=== PATIENT | female | born 1930 | race Caucasian/White ===

== ENCOUNTER 2016-10-02 10:51 | Inpatient (IN) | payer OTHER ==
[~2016-10-02] VITALS: Ht 167.6 cm; Wt 76.5 kg
--- NOTE | ~2016-10-02 | CON ---
[place], [place] REPORT OF CONSULTATION NAME: [facility]VO [id number] UNIT #: [id number] ROOM: 522 DOCTOR: TREMAINE ORTEGA MD,ELSA BIRTHDATE: [birth year] DOS: 10/03/2016 PULMONARY CONSULTATION EVALUATION REASON FOR CONSULTATION: Assess the patient for acute respiratory failure. HISTORY OF PRESENT ILLNESS: This is an 86-year-old white female known to me with centrilobular emphysema with chronic hypercapnic hypoxic respiratory failure and steroid dependency, presented and admitted to the hospital under care of the hospitalist service on 10/02/2016. The patient was admitted to the hospital for the assessment and management of symptoms of confusional status with increased shortness of breath. The patient has been using oxygen supplementation as well. She has been noted with a decreased physical activity as well. The patient does have some symptoms of cough without any sputum expectoration. She has been noted increased respiratory symptoms recently, which has been treated by Zithromax for the past 4 days as she contacted my office. She was brought to the hospital. The patient's symptoms have not been getting worse. She denies any symptoms of chest pain or hemoptysis. The patient has been noted progressive changes in the mental status with decreased responsiveness. Arterial blood gases show severe acute hypercapnic and hypoxic respiratory failure. She was started on BiPAP for this patient in the Emergency Room later on admitted to the hospital and the BiPAP settings had been changed for this patient by me with gradual improvement and the improvement occurred in mental status as well as responsiveness. This morning, the patient still noticed some chest congestion, no sputum expectoration, and shortness breath was noted somewhat decreased using the BiPAP at this time. REVIEW OF SYSTEMS: CONSTITUTIONAL: Fatigue and tiredness noted without symptoms of fever or chills. EYES: Denied any burning, redness, or tenderness. EARS, NOSE, THROAT SYMPTOMS: No sore throat, hoarseness, otalgia, postnasal drainage. CARDIOVASCULAR: Denies anginal pain, edema or pain of the lower extremities. GASTROINTESTINAL: Denies any nausea, vomiting, diarrhea, abdominal pain, hematemesis, melena, or hematochezia. GENITOURINARY: Denies dysuria, suprapubic pain, and hematuria. MUSCULOSKELETAL: Denies acute joint pain, redness, or tenderness. SKIN: No lesions or rashes. CENTRAL NERVOUS SYSTEM: Generalized weakness noted without symptoms of focal neurologic deficit. Cranial nerves 2-12 intact. Remaining systems were reviewed with the patient and they were noted all negative. PAST MEDICAL HISTORY: Noted with last hospitalization in this hospital in 06/2016. She was managed at that time for dehydration and acute kidney injury for the patient and discharged home after progressive resolution. Past medical history was noted with; [place], [place] REPORT OF CONSULTATION NAME: IRINA CALVO UNIT #: [id number] ROOM: 522 DOCTOR: TREMAINE ORTEGA MD,ELSA BIRTHDATE: [birth year] 1. Severe centrilobular emphysema. 2. Chronic hypercapnic and hypoxic respiratory failure, use of oxygen 4 liter nasal cannula. 3. History of past intestinal blockage, which has been treated at [facility]. 4. Generalized anxiety disorder. 5. Chronic steroid dependency, 5 mg, up to 10 mg prednisone every day use. 6. History of osteoarthritis. PAST SURGICAL HISTORY: 1. Cholecystectomy. 2. Partial resection of small bowel that was noncancerous and then several other surgical interventions of the abdomen. The patient to correct the adhesions and others. 3. Hysterectomy. 4. Appendectomy. 5. Right hemicolectomy. SOCIAL HISTORY: The patient is . She lives at home. Denies history of alcohol or illicit drug use. Tobacco use noted since age of [age] years old, pack of cigarettes per day until 1999. She has worked for 15 years in the [employer] as well. FAMILY HISTORY: The patient noted father at age of 8989 years old from old age. Mother at age of 8787 years old from old age as well. MEDICATIONS: Current administered medication for the patient noted as use of multivitamin, calcium carbonate, Protonix, diltiazem, gabapentin, Cymbalta, metoprolol tartrate, Eliquis, Mucinex, tramadol, DuoNeb, Levaquin, Ativan, morphine and other p.r.n. medications. Also, had a history of atrial fibrillation, on anticoagulation with Eliquis. DRUG ALLERGIES: Allergy noted: 1. IVP DYE. 2. CODEINE. 3. MEPERIDINE. PHYSICAL EXAMINATION: GENERAL: An 86-year-old female who has been noted currently awake and alert, still noticed some confusion, but much better. Height of 5 feet 6 inches, weight 171 pounds. BMI 27.6. VITAL SIGNS: The patient shows normal temperature, respiratory rate of 20-25, heart rate of 58-107, blood pressure 130/70-108/75. Pulse oxygen saturation of the patient recorded on 4 L nasal cannula was 95% and later on 100% on 89%, currently with the use of the BiPAP desaturation noted 96% on 60% oxygen. HEENT: Head was atraumatic. Eyes nonicterus. NECK: Supple. CARDIOVASCULAR: S1, S2 is audible. LUNGS: The patient noted with moderate generalized reduced breath sound. Diffuse expiratory wheezing. ABDOMEN: Soft, nontender, bowel sounds present. [place], [place] REPORT OF CONSULTATION NAME: IRINA CALVO UNIT #: [id number] ROOM: 522 DOCTOR: ELSA MORAES MD BIRTHDATE: [birth year] EXTREMITIES: Showed no edema, clubbing, cyanosis. CENTRAL NERVOUS SYSTEM: The patient shows no gross focal deficit. MUSCULOSKELETAL: No deformities. SKIN: No lesions or rashes. LABORATORY DATA: Arterial blood gas of the patient, which was done yesterday on admission in the Emergency with pH of 7.20, pCO2 of 96, pO2 of 80. Later on, repeat arterial blood gas with setting of BiPAP 12/6, pH of 7.19, pCO2 112, pO2 77. Third arterial blood gas for the patient on the BiPAP 60% with adjusted settings of 18/10 with pH of 7.33, pCO2 of 77, pO2 of 53.4. Arterial blood gas of the patient that was done this morning, the patient shows pH is 7.37, pCO2 of 71, pO2 of 75.6 on 60% oxygen. BMP for this patient that was done for the patient yesterday on admission in the Emergency Room noted normal BUN and creatinine. Glucose noted as 160. CO2 was 39. Remaining LFTs were normal. CBC for the patient yesterday, WBC count 12.0, hemoglobin 11.9, hematocrit was normal, platelet count was normal as well. CK-MB, troponin of patient 3 sets yesterday and this morning normal. CBC this morning, hemoglobin 10.5, hematocrit 34.1, platelet count and WBC count was normal. BMP of this morning: BUN 22, creatinine 1.21. Carbon dioxide 41. Chloride of 90. The chest x-ray for the patient that was done, one view, in the Emergency Room, on assessment, the patient was noted with mild interstitial edema. The patient would be considered. Area of atelectasis, infiltration of the patient was noted, scattered in the lungs as well. IMPRESSION: 1. The patient who has been currently admitted to the hospital noted with acute on chronic hypercapnic hypoxic respiratory failure. Change in mental status with partial improvement. 2. Superimposed congestive heart failure would be considered with possibility of acute bacterial pneumonia bilaterally would also be considered in the differential diagnosis. 3. Acute kidney injury for the patient was also noted for this patient secondary to diuretic and current acute medical problems. 4. Metabolic alkalosis, hypercarbia, and diuretics for the patient would be considered. 5. The patient with chronic steroid dependency as well. 6. Generalized anxiety disorder. 7. Chronic anticoagulation. PLAN OF TREATMENT: Continue the BiPAP for this patient based on her code status: She does not wish to be intubated and will be kept on comfort measures, but would like to use the BiPAP that will be continued. Nutrition support. Aspiration precautions. Bronchodilators. Use of the corticosteroids as well. The antibiotic will be suffice at this time with continued use of the Levaquin. Management of hyperglycemia as well. Other supportive therapy, plan and management. Other medication to keep the patient comfortable will be continued. Thanks for allowing me to participate in the care of this patient. [place], [place] REPORT OF CONSULTATION NAME: [facility] [id number] UNIT #: [id number] ROOM: 522 DOCTOR: ELSA MORAES MD BIRTHDATE: [birth year] ELSA PENALOZA MD CM:CONSTR:REPORT OF CONSULTATION 1248 10/03/16 7808 interface
--- NOTE | ~2016-10-02 | PR ---
[place], [place] PROGRESS NOTE NAME: IRINA CALVO UNIT #: [id number] ROOM: 522 DOCTOR: TREMAINE ORTEGA MD,ELSA BIRTHDATE: [birth year] DOS: 10/06/2016 PULMONARY FOLLOWUP NOTE SUBJECTIVE: She has been noted to be comfortable at this time, was sleeping. She has used the BiPAP intermittently with oxygen supplementation. Mental status of the patient has been resolving progressively. OBJECTIVE: VITAL SIGNS: Show normal temperature, respirations 18, heart rate 73, blood pressure 132/56. Intake is 1100, the output was not recorded. Pulse oxygen saturation on 4 L nasal cannula 96% saturation. HEENT: Showed no new change. NECK: Supple. CARDIOVASCULAR: S1, S2 audible. LUNGS: Without any wheezing or crackles at the present time. ABDOMEN: Soft, nontender. LABORATORY DATA: Urine for Legionella antigen and for streptococcal antigens were noted negative. IMPRESSION: 1. The patient with resolving acute on chronic hypercapnic hypoxic respiratory failure with acute exacerbation of chronic obstructive pulmonary disease gradually. 2. Resolving metabolic alkalosis. PLAN OF TREATMENT: Bronchodilators to be continued. Continue use of the BiPAP. Dose of Solu-Medrol will be decreased to 40 mg Solu-Medrol daily at the present time as the wheezing and other respiratory symptoms have been resolving. Other supportive plan of management. Usual care. ELSA PENALOZA MD CM:PNTRANS [id number] ELSA ORTEGA MD 10/06/16 1540 interface
--- NOTE | ~2016-10-02 | PR ---
[place], [place] PROGRESS NOTE [id number] UNIT #: [id number] ROOM: 522 DOCTOR: TREMAINE ORTEGA MD,ELSA BIRTHDATE: [birth year] DOS: 10/05/2016 SUBJECTIVE: She has been noted much more awake and alert with improvement in confusion. This morning, seen using oxygen supplementation nasal cannula. Her oral intake has been noted appropriate per nursing staff. OBJECTIVE: VITAL SIGNS: Normal temperature, respiratory rate 18, heart rate of 118-74, blood pressure 124/78-137/53. Intake is 1300, the output 1050 mL. Pulse oxygen saturation on 4 L nasal cannula ____ saturation recorded. HEENT: Examination showed no new change. NECK: Supple. CARDIOVASCULAR: S1, S2 audible. LUNGS: Noted moderate reduction in breath sounds were noted in the lungs bilaterally. ABDOMEN: Soft, nontender. LABORATORY DATA: BMP: BUN 32, creatinine 1.22. Glucose 179. Carbon dioxide 37. CBC of the patient, hemoglobin 10.4, hematocrit 33.3, platelet count was normal and WBC count was normal. IMPRESSION: 1. The patient who has been currently treated in this hospital for the patient with progressive resolution of acute severe hypercapnic and hypoxic respiratory failure with acute bacterial bronchitis. The patient responding to treatment gradually. 2. Improving metabolic alkalosis. PLAN OF TREATMENT: Continue the current plan of management, antibiotics, bronchodilators, and use of the Diamox. The Solu-Medrol dose has been continued 40 mg b.i.d., which will remain the same as of today, possibly reduction to be done in the morning. Continue the BiPAP as ordered and tolerated. ELSA PENALOZA MD CM:PNTRANS [id number] [id number] ELSA ORTEGA MD 10/05/16 1434 interface
--- NOTE | ~2016-10-02 | PR ---
[place], [place] PROGRESS NOTE NAME: IRINA CALVO UNIT #: [id number] ROOM: 522 DOCTOR: ELSA MORASE MD BIRTHDATE: [birth year] DOS: 10/07/2016 PULMONARY PROGRESS NOTE SUBJECTIVE: The patient was seen and examined on 10/07/2016. She has been noted with increased sleepiness, has not been placed on the BiPAP from yesterday. She has been noted without any symptoms of hemodynamic instability. There were no symptoms of chest pain or any abdominal pain. OBJECTIVE: VITAL SIGNS: For the patient, which has been recorded showed the temperature of the patient noted as normal. The respiratory rate of the patient recorded as 18, heart rate of 67, blood pressure 120/48-130/56. Pulse oxygen saturation of the patient on 2 liters nasal cannula 93% saturation recorded. HEENT: Examination shows no acute change. NECK: Supple. CARDIOVASCULAR: S1, S2 audible. LUNGS: General reduction in breath sounds noted in the lungs bilaterally. ABDOMEN: Soft, nontender. LABORATORY DATA: BMP for this patient that was done this morning shows BUN 36, creatinine of 1.35. CBC this morning, WBC count 11.3, hemoglobin 37.1, platelet count was normal. Chest x-ray of the patient that was done this morning was noted with finding of pleural fluid and congestive heart failure. IMPRESSION: 1. The patient with acute severe hypercapnic hypoxic respiratory failure, chronic hypercapnic hypoxic respiratory failure. 2. Superimposed congestive heart failure with small pleural fluids as well as hypercapnia, change in mental status. PLAN OF TREATMENT: The BiPAP needs to be used for the patient majority of this time. Diuresis should be done for this patient. Bronchodilators administration as previously and other medical plan of management. Usual care, other supportive plan of management. Continue current dose of steroids, which should suffice. Continue anticoagulation for the patient for the long-term management of the patient's atrial fibrillation as well. [place], [place] PROGRESS NOTE NAME: IRINA CALVO UNIT #: [id number] ROOM: 522 DOCTOR: ELSA MORAES MD BIRTHDATE: [birth year] ELSA PENALOZA MD CM:PNTRANS 1238 22 ELSA ORTEGA MD 10/07/162322 interface
--- NOTE | ~2016-10-02 | PR ---
[place], [place] PROGRESS NOTE NAME: IRINA CALVO UNIT #: [id number] ROOM: 522 DOCTOR: ELSA MORAES MD BIRTHDATE: [birth year] DOS: 10/09/2016 PULMONARY PROGRESS NOTE SUBJECTIVE: She has been noted more awake and alert for this patient responding to treatment. Continue diuretic therapy. Denies symptoms of chest pain or any abdominal pain. Denies any coughing or sputum expectoration. OBJECTIVE: VITAL SIGNS: For the patient which has been recorded showed the temperature recorded as normal, respiratory rate 20, heart rate 60, blood pressure 110/60. Pulse oxygen saturation of the patient on 4 liters nasal cannula 99% saturation recorded. HEENT: Shows no new change. NECK: Supple. CARDIOVASCULAR: S1, S2 audible. LUNGS: The patient was noted without any wheezing or crackles at the present time. Breaths sounds are noted decreased in the lower portion of the lungs. However, improvement in air entry has been continued. ABDOMEN: Soft, nontender. LABORATORY DATA: CBC today, mild anemia, otherwise remaining CBC was normal. CMP of the patient this morning, the patient was noted with BUN 39, creatinine 1.35. CO2 of 39. IMPRESSION: 1. The patient with resolving acute congestive heart failure, improving acute kidney injury. The patient with azotemia. 2. Metabolic alkalosis, ____ diuretic and hypercarbia resolving as well. 3. Improving hypokalemia. PLAN OF TREATMENT: From the pulmonary standpoint, the patient would be considered for assessment for the discharge planning to [facility]. The patient was refusing to do so, but as I spoke to the patient this morning, she was agreeable for the plan. The discharge planning has been discussed with the patient's primary care attending. In the meantime, continue other previous treatment therapy, plan of management and care. Usual treatments. All other supportive plan and management. [place], [place] PROGRESS NOTE NAME: IRINA CALVO UNIT #: [id number] ROOM: 522 DOCTOR: ELSA MORAES MD BIRTHDATE: [birth year] ELSA PENALOZA MD CM:PNTRANS 1124 ELSA ORTEGA MD 10/10/16 0024 interface
--- NOTE | ~2016-10-02 | PR ---
[place], [place] PROGRESS NOTE NAME: IRINA CALVO UNIT #: [id number] ROOM: 522 DOCTOR: ELSA MORAES MD BIRTHDATE: [birth year] DOS: 10/02/2016 PULMONARY FOLLOWUP NOTE SUBJECTIVE: The patient has been noted clinically stable at this time with current medical management using the BiPAP. The patient ____ time. Remains awake, alert, and is responsive to vocal commands. She has not been noted any hemodynamic instability at the present time. OBJECTIVE: VITAL SIGNS: Showed normal temperature, respiratory rate 20, heart rate 71, blood pressure 112/58. Pulse oxygen saturation noted on the 50% BiPAP was 98% with the BiPAP of 94% saturation. HEENT: Examination shows head was atraumatic. Eyes: Nonicterus. NECK: Supple. CARDIOVASCULAR: S1, S2 audible. LUNGS: Noted general reduction of the breath sounds were noted in the lungs bilaterally. ABDOMEN: Soft, nontender. LABORATORY DATA: The BMP for this patient that was done this morning for the patient was noted as BUN 32, creatinine 1.16, glucose 143, carbon dioxide 41, chloride of 91. CBC of this morning; hemoglobin 9.7, hematocrit 30.7, platelet count was normal. IMPRESSION: 1. The patient with rohyp-re-avgqyru severe hypercapnic and hypoxic respiratory failure. 2. Metabolic alkalosis secondary to chronic hypercarbia. PLAN OF TREATMENT: Continuation of the BiPAP as the patient previously ordered. Please start the patient on Diamox ____ b.i.d. dosing for this patient to improve the metabolic alkalosis. Other supportive plan and management and other therapies. Usual care and other plan of treatment. Oxygen supplementation will be given for the patient intermittently at the time of the meals. Dose of Solu-Medrol will be decreased to 40 mg b.i.d. Continue current antibiotics. Overall prognosis, the patient was noted guarded at this time, but the patient seemed to be responding to the treatment this time gradually. [place], [place] PROGRESS NOTE NAME: IRINA CALVO UNIT #: [id number] ROOM: 522 DOCTOR: ELSA MORAES MD BIRTHDATE: [birth year] ELSA PENALOZA MD CM:PNTRANS [id number] ELSA ORTEGA MD 10/05/16 0113 interface
--- NOTE | ~2016-10-02 | PR ---
[place], [place] PROGRESS NOTE NAME: IRINA CALVO UNIT #: [id number] ROOM: 522 DOCTOR: ELSA MORAES MD BIRTHDATE: [birth year] DOS: 10/08/2016 PULMONARY PROGRESS NOTE SUBJECTIVE: She has been using the BiPAP as advised most of the time, noted completely awake and alert this morning with use of the BiPAP. She has been started on IV diuretics yesterday as well for this patient for the medical management of current fluid overload, congestive heart failure and pleural fluid formation. OBJECTIVE: VITAL SIGNS: For the patient, which has been recorded showed the temperature noted normal, respirations 18, heart rate of 60, blood pressure 100/48-115/88. Intake for this patient is 720 mL, the output was not documented, pulse oxygen saturation on 3-4 liters nasal cannula 92%-97% saturation. BiPAP was 98% saturation. HEENT: Showed no new change. NECK: Supple. CARDIOVASCULAR: S1, S2 audible. LUNGS: Noted generally reduced breath sounds, especially in the lower lungs. There were no crackles. ABDOMEN: Soft, nontender. LABORATORY DATA: CBC was noted with mild anemia, otherwise normal ____. CMP this morning, BUN 42, creatinine 1.34, glucose 108. Potassium was noted as 3.3. IMPRESSION: 1. Has been noted currently bilateral pleural fluid, acute congestive heart failure, acute on chronic hypercapnic hypoxic respiratory failure, responding to the treatment for this patient and improvement in mental status in the last 24 hours. 2. Hypokalemia for this patient was noted related to the diuretic therapy. PLAN OF TREATMENT: The patient has been given one dose of 40 mEq potassium for management of hypokalemia. Continue diuretic therapy in the patient, monitor chest x-ray of patient intermittently. Continue use of the BiPAP as advised and other medical therapy, plan of management. Usual care. Supportive care. Other therapy plan and management and usual treatments. [place], [place] PROGRESS NOTE NAME: IRINA CALVO UNIT #: [id number] ROOM: 522 DOCTOR: ELSA MORAES MD BIRTHDATE: [birth year] ELSA PENALOZA MD CM:PNTRANS [phone] 1 ELSA ORTEGA MD 10/09/16 0313 interface
[2016-10-02 10:51] VITALS: BP 184/90
[~2016-10-02 10:51] MED LIST: ACETAMINOPHEN-H1 TA2 PO; ADVAIR; AEROSOL THERAPY1 DEV INH; ALBUTEROL2.5 MG/0.5 INH; AMBIEN10 M1 PO; AMBIEN10 MG PO; AMINOPHYLLIN200 MG PO; ATIVAN0.5 MG PO; ATIVAN1 MG PO; AVPAK AZITHROM250 M1 PO; B-121000 MC1 PO; B121000 MCG/1 IM; B121000 MCG/2 IM; CALCIUM 600 +1 EAC7 PO; CALCIUM WITH VI1 TAB PO; CIPRO250 MG PO; CYMBALTA30 MG PO; DICYCLOMINE HCL10 MG PO; DICYCLOMINE10 MG PO; DILTIAZEM HCL30 MG PO; DOXYCYCLINE HY100 M5 PO; DUONEB 3 MG/3 ML3 M1 NEB; DUONEB 3ML 3 MG/3 ML INH; ELIQUIS5 M1 PO; GABAPENTIN100 M2 PO; GLIPIZIDE10 M2 PO; GLUCOTROL10 M1 PO; HCTZ/TRIAMTEREN1 CA2 PO; HCTZ/TRIAMTEREN1 TA3 PO; HUMALOG100 U/ML SC; ICAPS PLUS PO; LEVAQUIN750 M1 PO; LORAZEPAM0.5 MG PO; MERREM IV1 GM IV; METOPROLOL TART50 M1 PO; MUCINEX ER600 MG PO; MULTI-VITAMIN1 EACH PO; MULTIPLE VITAMI1 TAB PO; NEURONTIN100 MG PO; NEURONTIN300 MG PO; NORCO 5-325 TA1 EACH PO; OYSTER SHELL C500 M4 PO; PANTOPRAZOLE SO40 MG PO; PAROXETINE HCL10 MG PO; PREDNICOT10 MG PO; PREDNISONE10 M1 PO; PREDNISONE10 MG PO; PREDNISONE5 MG PO; PRESERVISION A1 EAC1 PO; PREVACID; PREVACID15 MG PO; PREVACID30 M1 PO; PRILOSEC20 M1 PO; PROAIR HFA8.5 GM INH; PROTONIX40 MG PO; RANITIDINE 7575 MG PO; SOLU-MEDROL40 MG IV; SPIRIVA -- 3018 MCG INH; SPIRIVA18 MCG IH; SPIRIVA18 MCG PO; SYMBICORT1 AE1 IH; SYMBICORT1 AE1 INH; TRAZADONE HYDR100 MG PO; TRAZODONE100 MG PO; ULTRACET 325 MG1 TA2 PO; VENTOLIN 02.5 MG/3 M NEB; VENTOLIN0.09 MG/AC IH; VENTOLIN0.09 MG/AC INH; VICODIN 5/500 505 MG PO; VITAMIN B12; VITAMIN B121000 MC1 PO; VITAMIN B1225 MCG PO; XIFAXAN550 MG PO; [UNRECOGNIZED DRUG - OTHER]
[2016-10-02 11:28] LABS: BASO % 0.1 % (0.0-1.0); EOS # 0.1 10*3/uL (0.0-0.4); EOS % 0.8 % (1.0-4.0); HEMATOCRIT 38.6 % (37.0-47.0); HEMOGLOBIN 11.9 g/dl (12.0-16.0); IG # 0.1 10*3/uL (0.0-0.1); LYMPH # 0.9 10*3/uL (1.3-4.4); LYMPH % 7.5 % (27.0-41.0); MEAN CELL VOLUME 93.2 fl (81.0-99.0); MEAN CORPUSCULAR HGB 28.7 pg (27.0-31.0); MEAN CORPUSCULAR HGB CONC 30.8 g/dl (33.0-37.0); MEAN PLATELET VOLUME 9.8 fl (9.6-12.3); MONO # 0.9 10*3/uL (0.1-1.0); MONO % 7.7 % (3.0-9.0); NEUT % 83.2 % (47.0-73.0); PLATELET COUNT AUTOMATED 162 10*3/uL (130-400); RED BLOOD COUNT 4.14 10*6/uL (4.10-5.10); RED CELL DISTRI WIDTH 12.1 % (0-14.5)
[2016-10-02 11:36] LABS: INTERNATIONAL NORM RATIO 1.1 (2.0-3.5); PROTHROMBIN TIME 11.2 SECONDS (9.0-12.4)
[2016-10-02 11:45] LABS: ALBUMIN 3.4 gm/dl (3.1-4.5); ALKALINE PHOSPHATASE 57 U/L (45-117); BILIRUBIN, TOTAL 0.7 mg/dl (0.2-1.0); BUN 15 mg/dl (7-24); CARBON DIOXIDE 39 mmol/L (21-32); CHLORIDE 92 mmol/L (98-107); EST GLOM FILT AFRICAN AMERICAN > 60 ml/min; GLUCOSE 160 mg/dL (65-99); MAGNESIUM 1.6 mg/dL (1.5-2.1); POTASSIUM 3.8 mmol/L (3.5-5.1); SGOT/AST 20 IU/L (3-35); SGPT/ALT 21 U/L (12-78); SODIUM 139 mmol/L (136-145); TOTAL PROTEIN 6.7 gm/dL (6.4-8.2)
[2016-10-02 11:49] LABS: TROPONIN I < 0.015 ng/ml (<0.045)
[2016-10-02 12:09] LABS: ABG BASE EXCESS 6.2 mmol/L (-2.0-2.0); ABG CO2 CONTENT 39.9 mmol/L (23-27); ABG HCO3 36.9 mmol/l (22-26); ABG TEMPERATURE 98.8 F (98.0-99.0); ARTERIAL BLOOD GAS PH 7.206 (7.35-7.45)
[2016-10-02 12:43] VITALS: BP 133/52
[2016-10-02 13:00] VITALS: BP 130/45
[2016-10-02 13:58] LABS: ABG BASE EXCESS 9.6 mmol/L (-2.0-2.0); ABG CO2 CONTENT 44.7 mmol/L (23-27); ABG HCO3 41.3 mmol/l (22-26); ABG TEMPERATURE 99.4 F (98.0-99.0)
[2016-10-02 14:02] LABS: ARTERIAL BLOOD GAS PH 7.194 (7.35-7.45)
[2016-10-02 14:19] VITALS: BP 151/66
[2016-10-02] MEDS ORDERED: TRAMADOL HCL50 MG PO ×2 (14:29→19:04)
[2016-10-02] MEDS ORDERED: GRALISE300 M1 PO (15:27)
[2016-10-02 16:00] VITALS: BP 123/50
[2016-10-02 16:05] LABS: BILIRUBIN NEGATIVE (NEGATIVE); BLOOD 1+ (NEGATIVE); CLARITY CLEAR (CLEAR); COLOR YELLOW (YELLOW); GLUCOSE NEGATIVE (NEGATIVE); KETONE NEGATIVE (NEGATIVE); LEUKO ESTERASE NEGATIVE (NEGATIVE); NITRITE NEGATIVE (NEGATIVE); PROTEIN NEGATIVE (NEGATIVE); UROBILINOGEN 0.2 E.U./dl (0.2-1.0)
[2016-10-02 16:24] LABS: BACTERIA 1+; URINE REFLEX COMMENT YES (NO); WBC 0-2 wbc/hpf (0-5)
[2016-10-02 17:53] LABS: CKMB 3.6 ng/ml (0.5-3.6); TROPONIN I 0.022 ng/ml (<0.045)
[2016-10-02] MEDS ORDERED: CYMBALTA30 MG PO (17:58)
[2016-10-02 18:03] LABS: ABG BASE EXCESS 11.4 mmol/L (-2.0-2.0); ABG CO2 CONTENT 42.5 mmol/L (23-27); ABG HCO3 40.1 mmol/l (22-26); ABG TEMPERATURE 97.8 F (98.0-99.0); ARTERIAL BLOOD GAS PH 7.333 (7.35-7.45); ARTERIAL BLOOD GAS PO2 53.4 mmHg (80-90)
[2016-10-02] MEDS ORDERED: DICYCLOMINE HYD10 MG PO (18:48)
[2016-10-02] MEDS ORDERED: PREDNISONE5 MG PO (19:02)
[2016-10-02 20:00] VITALS: BP 130/70
[2016-10-03] VITALS: BP 108/75
[2016-10-03 00:53] LABS: CKMB 3.5 ng/ml (0.5-3.6); TROPONIN I 0.021 ng/ml (<0.045)
[2016-10-03 05:55] LABS: CKMB 3.2 ng/ml (0.5-3.6); TROPONIN I 0.018 ng/ml (<0.045)
[2016-10-03 05:57] LABS: HEMATOCRIT 34.1 % (37.0-47.0); HEMOGLOBIN 10.5 g/dl (12.0-16.0); MEAN CELL VOLUME 91.9 fl (81.0-99.0); MEAN CORPUSCULAR HGB 28.3 pg (27.0-31.0); MEAN CORPUSCULAR HGB CONC 30.8 g/dl (33.0-37.0); MEAN PLATELET VOLUME 10.5 fl (9.6-12.3); PLATELET COUNT AUTOMATED 187 10*3/uL (130-400); RED BLOOD COUNT 3.71 10*6/uL (4.10-5.10); WHITE BLOOD COUNT 9.6 10*3/uL (4.8-10.8)
[2016-10-03 06:05] LABS: MAGNESIUM 1.8 mg/dL (1.5-2.1)
[2016-10-03 06:25] LABS: POTASSIUM 4.8 mmol/L (3.5-5.1)
[2016-10-03 06:38] LABS: LYMPHOCYTE # 0.2 10*3/uL (1.3-4.4); NEUTROPHIL # 9.4 10*3/uL (2.3-7.9); NEUTROPHILS 98 % (47-73); PLATELET SUFFICIENCY NORMAL (NORMAL); TOTAL CELLS COUNTED 100 #CELLS
[2016-10-03 06:48] LABS: ABG BASE EXCESS 13.8 mmol/L (-2.0-2.0); ABG CO2 CONTENT 43.3 mmol/L (23-27); ABG HCO3 41.2 mmol/l (22-26); ABG TEMPERATURE 98.7 F (98.0-99.0); ARTERIAL BLOOD GAS PH 7.379 (7.35-7.45); ARTERIAL BLOOD GAS PO2 75.6 mmHg (80-90)
[2016-10-03 07:42] LABS: HEMOGLOBIN A1c 5.3 % (4.8-5.6)
[2016-10-03 08:00] VITALS: BP 116/50
[2016-10-03 12:00] VITALS: BP 114/52
[2016-10-03 16:00] VITALS: BP 122/86
[2016-10-03 20:00] VITALS: BP 110/46
[2016-10-04] VITALS: BP 128/67
[2016-10-04 06:15] LABS: HEMATOCRIT 30.9 % (37.0-47.0); HEMOGLOBIN 9.7 g/dl (12.0-16.0); IG # 0.1 10*3/uL (0.0-0.1); LYMPH # 0.4 10*3/uL (1.3-4.4); LYMPH % 5.3 % (27.0-41.0); MEAN CELL VOLUME 90.4 fl (81.0-99.0); MEAN CORPUSCULAR HGB 28.4 pg (27.0-31.0); MEAN CORPUSCULAR HGB CONC 31.4 g/dl (33.0-37.0); MEAN PLATELET VOLUME 10.3 fl (9.6-12.3); MONO # 0.3 10*3/uL (0.1-1.0); NEUT # 7.4 10*3/uL (2.3-7.9); PLATELET COUNT AUTOMATED 176 10*3/uL (130-400); RED BLOOD COUNT 3.42 10*6/uL (4.10-5.10); RED CELL DISTRI WIDTH 12.1 % (0-14.5); WHITE BLOOD COUNT 8.2 10*3/uL (4.8-10.8)
[2016-10-04 06:39] LABS: ALBUMIN 2.9 gm/dl (3.1-4.5); BILIRUBIN, TOTAL 0.6 mg/dl (0.2-1.0); POTASSIUM 4.1 mmol/L (3.5-5.1); TOTAL PROTEIN 5.8 gm/dL (6.4-8.2)
[2016-10-04 08:00] VITALS: BP 124/61
[2016-10-04 12:00] VITALS: BP 102/58
[2016-10-04 16:00] VITALS: BP 125/56
[2016-10-04 20:00] VITALS: BP 101/53
[2016-10-05] VITALS: BP 123/57
[2016-10-05 05:41] VITALS: BP 137/53
[2016-10-05 06:26] LABS: HEMATOCRIT 33.3 % (37.0-47.0); HEMOGLOBIN 10.4 g/dl (12.0-16.0); MEAN CELL VOLUME 92.2 fl (81.0-99.0); MEAN CORPUSCULAR HGB 28.8 pg (27.0-31.0); MEAN CORPUSCULAR HGB CONC 31.2 g/dl (33.0-37.0); MEAN PLATELET VOLUME 10.4 fl (9.6-12.3); PLATELET COUNT AUTOMATED 209 10*3/uL (130-400); RED BLOOD COUNT 3.61 10*6/uL (4.10-5.10); RED CELL DISTRI WIDTH 12.1 % (0-14.5); WHITE BLOOD COUNT 6.6 10*3/uL (4.8-10.8)
[2016-10-05 06:36] LABS: POTASSIUM 3.7 mmol/L (3.5-5.1)
[2016-10-05 07:20] LABS: LYMPHOCYTE # 0.1 10*3/uL (1.3-4.4); MONOCYTE # 0.3 10*3/uL (0.1-1.0); NEUTROPHIL # 6.3 10*3/uL (2.3-7.9); NEUTROPHILS 95 % (47-73); PLATELET SUFFICIENCY NORMAL (NORMAL); TOTAL CELLS COUNTED 100 #CELLS
[2016-10-05 08:00] VITALS: BP 124/78
[2016-10-05 12:00] VITALS: BP 110/56
[2016-10-05 16:00] VITALS: BP 122/53
[2016-10-05 18:05] LABS: ORGANISM ID Not indicated. (.); SPECIMEN SOURCE Urine (.); STREPTOCOCCUS PNEUMONIAE AG Negative (Negative)
[2016-10-05 20:00] VITALS: BP 137/58
[2016-10-06] VITALS: BP 143/69
[2016-10-06 08:00] VITALS: BP 132/56
[2016-10-06 12:00] VITALS: BP 109/48
[2016-10-06 16:00] VITALS: BP 115/43
[2016-10-06 20:00] VITALS: BP 123/59
[2016-10-07] VITALS: BP 114/49
[2016-10-07 05:26] VITALS: BP 130/56
[2016-10-07 07:15] LABS: EOS % 0.6 % (1.0-4.0); HEMATOCRIT 37.1 % (37.0-47.0); HEMOGLOBIN 11.3 g/dl (12.0-16.0); LYMPH # 0.9 10*3/uL (1.3-4.4); LYMPH % 12.5 % (27.0-41.0); MEAN CORPUSCULAR HGB 28.3 pg (27.0-31.0); MEAN CORPUSCULAR HGB CONC 30.5 g/dl (33.0-37.0); MEAN PLATELET VOLUME 10.1 fl (9.6-12.3); MONO # 0.7 10*3/uL (0.1-1.0); MONO % 9.7 % (3.0-9.0); NEUT # 5.2 10*3/uL (2.3-7.9); NEUT % 76.6 % (47.0-73.0); PLATELET COUNT AUTOMATED 222 10*3/uL (130-400); RED BLOOD COUNT 3.99 10*6/uL (4.10-5.10); WHITE BLOOD COUNT 6.8 10*3/uL (4.8-10.8)
[2016-10-07 07:35] LABS: POTASSIUM 3.4 mmol/L (3.5-5.1)
[2016-10-07 08:00] VITALS: BP 120/48
[2016-10-07 12:00] VITALS: BP 119/54
[2016-10-07 16:00] VITALS: BP 115/56
[2016-10-07 20:00] VITALS: BP 110/60
[2016-10-08] VITALS: BP 115/88
[2016-10-08 06:02] LABS: EOS # 0.1 10*3/uL (0.0-0.4); EOS % 1.4 % (1.0-4.0); HEMATOCRIT 38.3 % (37.0-47.0); HEMOGLOBIN 11.5 g/dl (12.0-16.0); LYMPH # 1.2 10*3/uL (1.3-4.4); LYMPH % 16.4 % (27.0-41.0); MEAN CELL VOLUME 93.9 fl (81.0-99.0); MEAN CORPUSCULAR HGB 28.2 pg (27.0-31.0); MEAN PLATELET VOLUME 10.3 fl (9.6-12.3); MONO # 0.8 10*3/uL (0.1-1.0); MONO % 10.2 % (3.0-9.0); NEUT # 5.3 10*3/uL (2.3-7.9); NEUT % 71.5 % (47.0-73.0); PLATELET COUNT AUTOMATED 217 10*3/uL (130-400); RED BLOOD COUNT 4.08 10*6/uL (4.10-5.10); RED CELL DISTRI WIDTH 12.1 % (0-14.5); WHITE BLOOD COUNT 7.4 10*3/uL (4.8-10.8)
[2016-10-08 06:34] LABS: ALBUMIN 2.8 gm/dl (3.1-4.5); BILIRUBIN, TOTAL 0.3 mg/dl (0.2-1.0); POTASSIUM 3.3 mmol/L (3.5-5.1); TOTAL PROTEIN 5.8 gm/dL (6.4-8.2)
[2016-10-08 08:00] VITALS: BP 102/48
[2016-10-08 12:00] VITALS: BP 128/58
[2016-10-08 16:00] VITALS: BP 127/63
[2016-10-08 20:00] VITALS: BP 112/50
[2016-10-09] VITALS: BP 104/54
[2016-10-09 06:29] LABS: BASO % 0.1 % (0.0-1.0); EOS # 0.1 10*3/uL (0.0-0.4); EOS % 1.1 % (1.0-4.0); HEMATOCRIT 34.9 % (37.0-47.0); HEMOGLOBIN 10.7 g/dl (12.0-16.0); IG # 0.1 10*3/uL (0.0-0.1); LYMPH # 1.2 10*3/uL (1.3-4.4); LYMPH % 14.4 % (27.0-41.0); MEAN CELL VOLUME 92.3 fl (81.0-99.0); MEAN CORPUSCULAR HGB 28.3 pg (27.0-31.0); MEAN CORPUSCULAR HGB CONC 30.7 g/dl (33.0-37.0); MEAN PLATELET VOLUME 10.4 fl (9.6-12.3); MONO # 0.7 10*3/uL (0.1-1.0); MONO % 7.9 % (3.0-9.0); NEUT # 6.4 10*3/uL (2.3-7.9); NEUT % 75.6 % (47.0-73.0); PLATELET COUNT AUTOMATED 216 10*3/uL (130-400); RED BLOOD COUNT 3.78 10*6/uL (4.10-5.10); RED CELL DISTRI WIDTH 12.1 % (0-14.5); WHITE BLOOD COUNT 8.5 10*3/uL (4.8-10.8)
[2016-10-09 06:55] LABS: POTASSIUM 3.8 mmol/L (3.5-5.1)
[2016-10-09 07:27] LABS: ALBUMIN 2.7 gm/dl (3.1-4.5); BILIRUBIN, TOTAL 0.5 mg/dl (0.2-1.0)
[2016-10-09 07:30] LABS: TOTAL PROTEIN 5.4 gm/dL (6.4-8.2)
[2016-10-09 08:00] VITALS: BP 110/60
[2016-10-09 12:00] VITALS: BP 102/63
[2016-10-09] MEDS ORDERED: PREDNISONE10 MG PO (14:49)
== END 2016-10-09 17:00 | disposition other institution (70) | DRG 871 ==
LOC: ED 10:51 → 5E 12:36 → EDHOLD 12:36 → ICCU 12:56 → 5E 13:44
PROVIDERS: Emergency Medicine; Family Medicine Adult Medicine; Internal Medicine; Internal Medicine Critical Care Medicine
PROC: 5A09457 Assistance with Respiratory Ventilation, 24-96 Consecutive Hours, Continuous Positive Airway Pressure (ICD-10-PCS; principal; 2016-10-02)
DX: A41.9 Sepsis, unspecified organism (principal); J96.21 Acute and chronic respiratory failure with hypoxia; N17.0 Acute kidney failure with tubular necrosis; I50.33 Acute on chronic diastolic (congestive) heart failure; J18.9 Pneumonia, unspecified organism; E87.4 Mixed disorder of acid-base balance; J44.0 Chronic obstructive pulmonary disease with (acute) lower respiratory infection; I11.0 Hypertensive heart disease with heart failure; J96.22 Acute and chronic respiratory failure with hypercapnia; J44.1 Chronic obstructive pulmonary disease with (acute) exacerbation; R65.20 Severe sepsis without septic shock; I48.2 Chronic atrial fibrillation; K21.9 Gastro-esophageal reflux disease without esophagitis; Z66 Do not resuscitate; E87.6 Hypokalemia; F41.1 Generalized anxiety disorder; M19.90 Unspecified osteoarthritis, unspecified site; Z79.01 Long term (current) use of anticoagulants; Z79.899 Other long term (current) drug therapy; Z90.49 Acquired absence of other specified parts of digestive tract; Z99.81 Dependence on supplemental oxygen; Z98.42 Cataract extraction status, left eye; Z98.41 Cataract extraction status, right eye; Z90.710 Acquired absence of both cervix and uterus; Z87.891 Personal history of nicotine dependence; Z88.8 Allergy status to other drugs, medicaments and biological substances; Z91.041 Radiographic dye allergy status; Z80.8 Family history of malignant neoplasm of other organs or systems; Z83.2 Family history of diseases of the blood and blood-forming organs and certain disorders involving the immune mechanism

== ENCOUNTER 2016-10-24 09:55 | Inpatient (IN) | payer OTHER ==
[~2016-10-24] VITALS: Ht 162.5 cm; Wt 72.2 kg
--- NOTE | ~2016-10-24 | PN ---
[place], [place] PROGRESS NOTE [id number] UNIT #: [id number] ROOM: 510 DOCTOR: ELSA MORAES MD BIRTHDATE: [birth year] DATE: 10/28/16 SUBJECTIVE: She has been noted fully awake and alert. She has been using the BiPAP as recommended. She denies any symptoms of chest pain. She is eating her food regularly as well. OBJECTIVE: VITAL SIGNS: Shows normal temperature, respiratory rate 22, heart rate 64, and blood pressure 130/56. HEENT: Shows no acute change. NECK: Supple. CARDIOVASCULAR SYSTEM: S1, S2 audible. LUNGS: Noted with moderate generalized diminished breath sounds bilaterally. ABDOMEN: Soft, nontender. LABORATORY DATA: CBC this morning, mild anemia, otherwise CBC was normal. CMP this morning, the patient's BUN 32, creatinine 1.24 and glucose was normal. Carbon dioxide 40. IMPRESSION: 1. Resolving acute hypercapnic and hypoxic respiratory failure. 2. Acute kidney injury, the patient most likely intravascular volume depletion. 3. Metabolic alkalosis, resolving. 4. Acute exacerbation of chronic obstructive pulmonary disease as well. PLAN OF TREATMENT: Discussion was done with the patient and she was recommended about placement of long-term acute care facility if accepted to be done. In the meantime, continue the patient on current therapy, plan of management with use the BiPAP most time as tolerated and continue other care. Usual care. Supportive plan of management and treatments. ELSA MORAES MD CM:PNTRANS 1152 1152 ELSA ORTEGA MD 10/29/16 1726 JESÚS SNEED MIS.LLR
--- NOTE | ~2016-10-24 | PR ---
[place], [place] PROGRESS NOTE NAME: IRINA CALVO UNIT #: [id number] ROOM: 510 DOCTOR: ELSA MORAES MD BIRTHDATE: [birth year] DOS: 10/27/2016 PULMONARY PROGRESS NOTE SUBJECTIVE: She has been noted comfortable at this time, eating her breakfast. She has been noted more awake and alert with some confusion described as previously intermittently. She has been using the BiPAP until this morning. The patient eating her food, using oxygen supplementation with the nasal cannula. OBJECTIVE: VITAL SIGNS: Of the patient showed normal temperature. The respiratory rate 22, heart rate of 69, blood pressure 112/58. HEENT: Examination shows no new change. NECK: Supple. CARDIOVASCULAR SYSTEM: S1, S2 audible. LUNGS: Noted without any wheezing or crackles at the present time. ABDOMEN: Soft, nontender. LABORATORY DATA: Of the patient this morning, CBC this morning: WBC count was normal, platelet count was normal, hemoglobin 10.2, hematocrit 33.2. CMP of the patient was noted on 10/27/2016 shows glucose 158, BUN 21, creatinine 1.14, carbon dioxide 43. Albumin 3.0. IMPRESSION: 1. The patient who has been currently noted with ongoing acute on chronic hypercapnic hypoxic respiratory failure with exacerbation of chronic obstructive pulmonary disease. 2. Metabolic alkalosis of the patient was also noted. Metabolic alkalosis chronic hypercarbia. PLAN OF TREATMENT: Continue use of the BiPAP for this patient. The patient is already getting the Diamox with medical management of metabolic alkalosis. Steroids to be continued current dose. Continue with the previous treatment plan of management. BiPAP to be continued for the patient all the time except meals. Other supportive plan of management and care. No other change in treatment will be needed. [place], [place] PROGRESS NOTE NAME: IRINA CALVO UNIT #: [id number] ROOM: 510 DOCTOR: ELSA MORAES MD BIRTHDATE: [birth year] ELSA PENALOZA MD CM:PNTRANS [id number] [id number] ELSA ORTEGA MD 10/27/16 2319 interface
--- NOTE | ~2016-10-24 | PR ---
[place], [place] [facility]GRESS NOTE [id number] UNIT #: [id number] ROOM: 510 DOCTOR: TREMAINE ORTEGA MD,ELSA BIRTHDATE: [birth year] DOS: 10/26/2016 SUBJECTIVE: She has been noted awake and alert, noted with hematuria. The patient pulled down her Blanco catheter. The hematuria appeared to be mild at the present time. The patient has not been noted with symptoms of chest pain or any abdominal pain. OBJECTIVE: VITAL SIGNS: Showed normal temperature, respiratory rate of 20-19, heart rate 61, blood pressure 135/60. The pulse oxygen saturation recorded as 98% on 50% oxygen supplementation. HEENT: Examination shows no acute change. NECK: Supple. CARDIOVASCULAR: S1, S2 audible. LUNGS: Noted without any wheezing or crackles at the present time. Breaths are noted generally diminished bilaterally. ABDOMEN: Soft, nontender. IMPRESSION: 1. The patient with acute on chronic hypercapnic and hypoxic respiratory failure with acute tracheobronchitis with acute exacerbation of chronic obstructive pulmonary disease as well. 2. Chronic hypercarbia. 3. Change in mental status of the patient related to the current hypercarbia, which is improving progressively. PLAN OF TREATMENT: Continue the BiPAP, oxygen supplementation. Other treatment plan is in progress. Transfer the patient to telemetry floor from the intensive care unit. Continue the current application and use of the BiPAP for this patient continued nighttime ____ daytime. Other supportive plan of management, monitor mental status. The patient seemed to be much more awake, alert, oriented today. ELSA PENALOZA MD CM:PNTRANS [id number] ELSA ORTEGA MD 10/27/169 interface
--- NOTE | ~2016-10-24 | CON ---
[place], [place] REPORT OF CONSULTATION NAME: IRINA CALVO UNIT #: [id number] ROOM: [facility] DOCTOR: ELSA MORAES MD BIRTHDATE: [birth year] DOS: 10/25/2016 PULMONARY CONSULTATION EVALUATION AND MANAGEMENT REASON FOR CONSULTATION: Assess the patient for respiratory failure. HISTORY OF PRESENT ILLNESS: This is an 86-year-old female who has been known to me with history of end-stage centrilobular emphysema, chronic hypercapnic hypoxic respiratory failure. The patient is residing in the shelter facility. The patient has been recently diagnosed with obstructive sleep apnea disorder and titrated with the BiPAP. The BiPAP ordered for the patient has been already sent to the [facility] to arrange the BiPAP at home. She is residing in the nursing facility and has been ordered the BiPAP, which has been used at nighttime. She has been brought to the hospital Emergency Room for the patient yesterday as the patient developed decreased responsiveness. She was also noted confusional status. The symptoms of the patient of shortness of breath for the patient has been also noted. The patient denies any symptoms of chest pain or any abdominal pain. Reported at that time, there was no coughing or sputum expectoration described. Because of the unresponsiveness, she was sent to the Emergency Room. She has been seen in the Emergency Room, noted with recurrent acute on chronic hypercapnic and hypoxic respiratory failure. The patient has been hospitalized and currently treated in the Intensive Care Unit and has been using the BiPAP with a setting of 20/10. Mental status of the patient has been noted with gradual improvement for this patient from yesterday until this morning. She was still noted with mild confusional status, but it has been improving significantly. She denies any symptoms of chest pain or hemoptysis. The cough has been noted mild. REVIEW OF SYSTEMS: Limited because the patient is currently using the BiPAP for the patient with full face mask. CONSTITUTIONAL SYMPTOMS: The patient denies symptoms of fever or chills, complains of fatigue. EYES: Denies any burning, redness, or tenderness. EARS, NOSE, THROAT SYMPTOMS: No sore throat, hoarseness, otalgia, or postnasal drainage. CARDIOVASCULAR SYSTEM: Denies anginal pain, edema or pain of the lower extremities. GASTROINTESTINAL SYMPTOMS: Denies dysphagia, nausea, vomiting, diarrhea, abdominal pain, hematemesis, or melena. SKIN: No lesions or rashes. MUSCULOSKELETAL SYMPTOMS: No acute deformities. Remaining systems were reviewed with the patient, they were noted all negative. PAST MEDICAL HISTORY: The patient was known with, 1. History of recent hospitalization for acute on chronic hypercapnic and hypoxic respiratory failure, managed patient in the September 2016 and discharged to the nursing facility on October 06. 2. The patient with end-stage centrilobular emphysema. 3. 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 [place], [place] REPORT OF CONSULTATION NAME: IRINA CALVO UNIT #: [id number] ROOM: [facility] DOCTOR: TREMAINE ORTEGA MD,[facility] BIRTHDATE: [birth year] 4. Generalized anxiety disorder. 5. Obstructive sleep apnea disorder, titrated for the patient on the BiPAP, setting of 26/05 for the management of sleep apnea disorder. 6. History of osteoarthritis. 7. Past abdominal problem for the patient of diverticulosis and diverticulitis for this patient and intestinal blockage with significant workup for the patient managed surgically and otherwise in hospitalization in [facility] in [place], [place]. 8. History of atrial fibrillation, on anticoagulation. SURGICAL HISTORY: 1. Cholecystectomy. 2. Partial resection of small bowel noncancerous for the patient and some blockage which has been later on treated conservatively. 3. Hysterectomy. 4. Appendectomy. 5. Right hemicolectomy. 6. Fiberoptic bronchoscopy. SOCIAL HISTORY: The patient is , lives at home. There was no history of alcohol or illicit drug use. Tobacco use noted since age of [age] years old, pack of cigarettes per day for this patient until 1999. She has worked for 15 years in the [employer]. FAMILY HISTORY: Father at age of 8989 years old from old age. Mother at age 8787 years old from old age as well. MEDICATIONS: Current administered medications noted use of prednisone daily 10 mg, glipizide, omeprazole, Neurontin, Eliquis, Cymbalta, metoprolol tartrate, Cardizem, calcium carbonate, tramadol, lorazepam and other p.r.n. medications administration. PHYSICAL EXAMINATION: GENERAL: This is an 86-year-old white female who has been noted to be more awake this morning than previously reported on admission: The patient's height was recorded by the nursing staff as height of 5 feet 4 inches, weight of 163 pounds, BMI of 26. VITAL SIGNS: For the patient shows a normal temperature, respiratory rate of 7-25. The heart rate of patient 79-66, blood pressure of 101/59-131/49. Intake for the patient recorded as 400, the output 750 mL. Pulse oxygen saturation of the patient recorded on BiPAP was 100% saturation at this time. HEENT: Examination shows head was atraumatic. Eyes nonicterus. NECK: Supple. CARDIOVASCULAR SYSTEM: S1, S2 audible. LUNGS: The patient was noted with generally reduced breath sounds in the lungs were noted bilaterally. ABDOMEN: Soft, nontender. LABORATORY DATA: The CT scan of the head without contrast for the patient on admission on October 24 was essentially noted without any acute abnormalities. [place], [place] REPORT OF CONSULTATION NAME: IRINA CALVO UNIT #: [id number] ROOM: [facility] DOCTOR[facility] [birth year] Lactic acid on admission was 0.6 yesterday. Arterial blood gas yesterday for the patient in the Emergency Room, pH of 7.13, pCO2 of 136, pO2 of 64.2 for this patient on 3 liter nasal cannula oxygen supplementation. Arterial blood gas this morning BiPAP settings of 18/10, 50% oxygen, pH of 7.34, pCO2 of 90.9, pO2 of 74. CMP of the patient yesterday for the patient was noted as carbon dioxide 43, BUN of 89, creatinine . Albumin of 2.9. PT/PTT yesterday were noted as normal. BMP of the patient this morning shows carbon dioxide of 47, chloride of 90. Calcium and other electrolytes were normal. Chest x-ray of the patient that was done for this patient 1 view for the patient in the Emergency Room for the patient on 10/24/2016 for the patient was described finding of COPD without any acute pulmonary infiltration or other acute abnormalities. IMPRESSION: 1. The patient who has been currently admitted to the hospital noted with acute exacerbation of chronic obstructive pulmonary disease with unresponsiveness secondary to hypercarbia with current acute hypercapnic and hypoxic respiratory failure. 2. Acute exacerbation of chronic obstructive pulmonary disease, which has been noted recurrent as well. 3. Obstructive sleep apnea disorder, so far has not been started on the treatment in the home setting and I am not sure if the patient is receiving the BiPAP at the nursing facility at this time or not. The prescription has been sent during her recent office visit last week for this patient to the nursing facility. 4. Severe metabolic alkalosis secondary to chronic hypercarbia. PLAN OF TREATMENT: The patient will be started on IV Solu-Medrol 40 mg b.i.d. Prednisone will be continued same dose 10 mg daily. The BiPAP settings have been changed to settings of 18/14 to help improve the underlying hypoxemia as well. Repeat arterial blood gas in the morning. DVT prophylaxis for the patient in the form of the Eliquis. Nutritional support as tolerated. Start the patient or oral Diamox as well to help improve the very severe metabolic alkalosis. Monitor potassium level closely for this patient while the patient is on Diamox. Supportive plan of care and other medical management. Thanks for allowing me to participate in the case of this patient. ELSA PENALOZA MD CM:CONSTR:REPORT OF CONSULTATION 1238 10/26/16 0102 interface
[~2016-10-24 09:55] MED LIST changes: +DICYCLOMINE HYD10 MG PO; +GRALISE300 M1 PO; +TRAMADOL HCL50 MG PO
[2016-10-24] MEDS ORDERED: PREDNISONE10 MG PO (10:13)
[2016-10-24] MEDS ORDERED: HUMALOG100 U/ML SC (10:13)
[2016-10-24] MEDS ORDERED: OMEPRAZOLE20 M2 PO ×2 (10:14→14:43)
[2016-10-24] MEDS ORDERED: CYMBALTA30 MG PO (10:15)
[2016-10-24] MEDS ORDERED: LOPRESSOR50 M1 PO (10:15)
[2016-10-24] MEDS ORDERED: PRESERVISION A1 EAC1 PO (10:16)
[2016-10-24] MEDS ORDERED: Oscal,Oyster S500 MG PO (10:16)
[2016-10-24] MEDS ORDERED: GLUCOTROL10 MG PO (10:16)
[2016-10-24] MEDS ORDERED: NEURONTIN300 MG PO (10:17)
[2016-10-24] MEDS ORDERED: DILTIAZEM30 MG PO (10:17)
[2016-10-24] MEDS ORDERED: LORAZEPAM0.5 MG PO (10:17)
[2016-10-24] MEDS ORDERED: ELIQUIS5 M1 PO (10:17)
[2016-10-24] MEDS ORDERED: TRAMADOL HCL50 MG PO (10:18)
[2016-10-24] MEDS ORDERED: DICYCLOMINE HYD10 MG PO (10:18)
[2016-10-24 10:33] LABS: ABG BASE EXCESS 10.7 mmol/L (-2.0-2.0); ABG CO2 CONTENT 48.1 mmol/L (23-27); ABG HCO3 43.9 mmol/l (22-26); ABG TEMPERATURE 98.6 F (98.0-99.0); ARTERIAL BLOOD GAS PO2 64.2 mmHg (80-90)
[2016-10-24 10:38] LABS: ARTERIAL BLOOD GAS PH 7.137 (7.35-7.45)
[2016-10-24 11:18] LABS: BASO % 0.1 % (0.0-1.0); EOS # 0.1 10*3/uL (0.0-0.4); HEMATOCRIT 34.9 % (37.0-47.0); HEMOGLOBIN 10.5 g/dl (12.0-16.0); LYMPH # 1.4 10*3/uL (1.3-4.4); LYMPH % 15.6 % (27.0-41.0); MEAN CELL VOLUME 94.3 fl (81.0-99.0); MEAN CORPUSCULAR HGB 28.4 pg (27.0-31.0); MEAN CORPUSCULAR HGB CONC 30.1 g/dl (33.0-37.0); MEAN PLATELET VOLUME 9.9 fl (9.6-12.3); MONO # 0.7 10*3/uL (0.1-1.0); MONO % 8.3 % (3.0-9.0); NEUT # 6.5 10*3/uL (2.3-7.9); NEUT % 74.7 % (47.0-73.0); PLATELET COUNT AUTOMATED 138 10*3/uL (130-400); RED CELL DISTRI WIDTH 12.3 % (0-14.5); WHITE BLOOD COUNT 8.7 10*3/uL (4.8-10.8)
[2016-10-24 11:21] LABS: BILIRUBIN NEGATIVE (NEGATIVE); BLOOD 2+ (NEGATIVE); CLARITY CLEAR (CLEAR); COLOR YELLOW (YELLOW); GLUCOSE NEGATIVE (NEGATIVE); KETONE NEGATIVE (NEGATIVE); LEUKO ESTERASE NEGATIVE (NEGATIVE); NITRITE NEGATIVE (NEGATIVE); PH 5.5 (5.0-9.0); PROTEIN 1+ (NEGATIVE); SPECIFIC GRAVITY >= 1.030 (1.005-1.030)
[2016-10-24 11:26] LABS: PROTHROMBIN TIME 10.6 SECONDS (9.0-12.4)
[2016-10-24 11:35] LABS: ALBUMIN 2.9 gm/dl (3.1-4.5); ALKALINE PHOSPHATASE 51 U/L (45-117); BILIRUBIN, TOTAL 0.6 mg/dl (0.2-1.0); BUN 16 mg/dl (7-24); CHLORIDE 89 mmol/L (98-107); EST GLOM FILT AFRICAN AMERICAN > 60 ml/min; GLUCOSE 103 mg/dL (65-99); MAGNESIUM 1.7 mg/dL (1.5-2.1); POTASSIUM 3.6 mmol/L (3.5-5.1); SGOT/AST 19 IU/L (3-35); SGPT/ALT 19 U/L (12-78); SODIUM 137 mmol/L (136-145); TOTAL PROTEIN 5.8 gm/dL (6.4-8.2); TROPONIN I 0.028 ng/ml (<0.045)
[2016-10-24 11:39] VITALS: BP 108/41
[2016-10-24 11:43] LABS: CARBON DIOXIDE 43 mmol/L (21-32)
[2016-10-24 11:46] LABS: BACTERIA 1+; RBC 21-30 rbc/hpf (0-2); URINE REFLEX COMMENT YES (NO)
[2016-10-24 12:10] VITALS: BP 111/42
[2016-10-24] MEDS ORDERED: HCTZ/TRIAMTEREN1 TA3 PO (12:14)
[2016-10-24] MEDS ORDERED: PROTONIX40 MG PO (12:21)
[2016-10-24 12:30] VITALS: BP 125/47
[2016-10-24 16:00] VITALS: BP 126/49
[2016-10-24 16:29] LABS: ABG BASE EXCESS 9.4 mmol/L (-2.0-2.0); ABG CO2 CONTENT 45.5 mmol/L (23-27); ABG HCO3 41.8 mmol/l (22-26); ABG TEMPERATURE 97.9 F (98.0-99.0); ARTERIAL BLOOD GAS PO2 61.4 mmHg (80-90)
[2016-10-24 16:34] LABS: ARTERIAL BLOOD GAS PH 7.172 (7.35-7.45)
[2016-10-24 20:00] VITALS: BP 111/55
[2016-10-25] VITALS: BP 101/59
[2016-10-25 04:00] VITALS: BP 135/57
[2016-10-25 06:01] LABS: BASO % 0.2 % (0.0-1.0); HEMOGLOBIN 10.4 g/dl (12.0-16.0); LYMPH # 0.7 10*3/uL (1.3-4.4); MEAN CELL VOLUME 93.7 fl (81.0-99.0); MEAN CORPUSCULAR HGB 28.7 pg (27.0-31.0); MEAN CORPUSCULAR HGB CONC 30.6 g/dl (33.0-37.0); MEAN PLATELET VOLUME 10.2 fl (9.6-12.3); MONO # 0.4 10*3/uL (0.1-1.0); MONO % 8.9 % (3.0-9.0); NEUT # 3.6 10*3/uL (2.3-7.9); NEUT % 75.5 % (47.0-73.0); PLATELET COUNT AUTOMATED 138 10*3/uL (130-400); RED BLOOD COUNT 3.63 10*6/uL (4.10-5.10); RED CELL DISTRI WIDTH 11.9 % (0-14.5); WHITE BLOOD COUNT 4.7 10*3/uL (4.8-10.8)
[2016-10-25 06:36] LABS: BUN 22 mg/dl (7-24); CHLORIDE 90 mmol/L (98-107); EST GLOM FILT AFRICAN AMERICAN > 60 ml/min; GLUCOSE 121 mg/dL (65-99); MAGNESIUM 1.7 mg/dL (1.5-2.1); PHOSPHOROUS 3.7 mg/dL (2.5-4.9); POTASSIUM 4.1 mmol/L (3.5-5.1); SODIUM 138 mmol/L (136-145)
[2016-10-25 07:24] LABS: CARBON DIOXIDE 47 mmol/L (21-32)
[2016-10-25 08:00] VITALS: BP 132/57
[2016-10-25 08:07] LABS: ABG BASE EXCESS 18.5 mmol/L (-2.0-2.0); ABG CO2 CONTENT 50.4 mmol/L (23-27); ABG HCO3 47.7 mmol/l (22-26); ARTERIAL BLOOD GAS PH 7.341 (7.35-7.45); ARTERIAL BLOOD GAS PO2 74.3 mmHg (80-90)
[2016-10-25 12:00] VITALS: BP 131/49
[2016-10-25 15:29] VITALS: BP 115/40
[2016-10-25 20:00] VITALS: BP 141/53
[2016-10-26] VITALS: BP 130/50
[2016-10-26 04:00] VITALS: BP 136/76
[2016-10-26 05:59] LABS: ALBUMIN 3.2 gm/dl (3.1-4.5); BILIRUBIN, TOTAL 0.5 mg/dl (0.2-1.0); HEMATOCRIT 34.1 % (37.0-47.0); HEMOGLOBIN 10.4 g/dl (12.0-16.0); LYMPH # 0.5 10*3/uL (1.3-4.4); LYMPH % 8.8 % (27.0-41.0); MEAN CELL VOLUME 92.2 fl (81.0-99.0); MEAN CORPUSCULAR HGB 28.1 pg (27.0-31.0); MEAN CORPUSCULAR HGB CONC 30.5 g/dl (33.0-37.0); MEAN PLATELET VOLUME 10.9 fl (9.6-12.3); MONO # 0.2 10*3/uL (0.1-1.0); MONO % 3.4 % (3.0-9.0); NEUT # 4.7 10*3/uL (2.3-7.9); NEUT % 87.4 % (47.0-73.0); PLATELET COUNT AUTOMATED 154 10*3/uL (130-400); POTASSIUM 3.9 mmol/L (3.5-5.1); TOTAL PROTEIN 6.2 gm/dL (6.4-8.2); WHITE BLOOD COUNT 5.4 10*3/uL (4.8-10.8)
[2016-10-26 06:06] LABS: ABG BASE EXCESS 12.5 mmol/L (-2.0-2.0); ABG CO2 CONTENT 43.2 mmol/L (23-27); ABG HCO3 40.7 mmol/l (22-26); ARTERIAL BLOOD GAS PH 7.33 (7.35-7.45); ARTERIAL BLOOD GAS PO2 92.1 mmHg (80-90)
[2016-10-26 08:00] VITALS: BP 136/60
[2016-10-26 12:00] VITALS: BP 135/54
[2016-10-26 16:00] VITALS: BP 146/66
[2016-10-26 20:00] VITALS: BP 114/47
[2016-10-26 22:07] LABS: ABG BASE EXCESS 11.3 mmol/L (-2.0-2.0); ABG CO2 CONTENT 42.3 mmol/L (23-27); ABG HCO3 39.8 mmol/l (22-26); ARTERIAL BLOOD GAS PH 7.316 (7.35-7.45); ARTERIAL BLOOD GAS PO2 83.5 mmHg (80-90)
[2016-10-27] VITALS: BP 134/45
[2016-10-27 06:47] LABS: HEMATOCRIT 33.2 % (37.0-47.0); HEMOGLOBIN 10.2 g/dl (12.0-16.0); LYMPH # 0.5 10*3/uL (1.3-4.4); LYMPH % 8.5 % (27.0-41.0); MEAN CORPUSCULAR HGB 28.6 pg (27.0-31.0); MEAN CORPUSCULAR HGB CONC 30.7 g/dl (33.0-37.0); MEAN PLATELET VOLUME 10.1 fl (9.6-12.3); MONO # 0.4 10*3/uL (0.1-1.0); MONO % 6.4 % (3.0-9.0); NEUT # 4.6 10*3/uL (2.3-7.9); NEUT % 84.7 % (47.0-73.0); PLATELET COUNT AUTOMATED 145 10*3/uL (130-400); RED BLOOD COUNT 3.57 10*6/uL (4.10-5.10); RED CELL DISTRI WIDTH 12.1 % (0-14.5); WHITE BLOOD COUNT 5.4 10*3/uL (4.8-10.8)
[2016-10-27 07:30] LABS: BILIRUBIN, TOTAL 0.4 mg/dl (0.2-1.0); POTASSIUM 3.5 mmol/L (3.5-5.1)
[2016-10-27 07:32] LABS: TOTAL PROTEIN 5.9 gm/dL (6.4-8.2)
[2016-10-27 08:00] VITALS: BP 112/50
[2016-10-27 12:00] VITALS: BP 126/51
[2016-10-27 16:00] VITALS: BP 119/52
[2016-10-27 20:00] VITALS: BP 125/57
[2016-10-28] VITALS: BP 129/55
[2016-10-28 06:11] LABS: HEMOGLOBIN 10.2 g/dl (12.0-16.0); MEAN CELL VOLUME 91.7 fl (81.0-99.0); MEAN CORPUSCULAR HGB 28.3 pg (27.0-31.0); MEAN CORPUSCULAR HGB CONC 30.9 g/dl (33.0-37.0); MEAN PLATELET VOLUME 10.1 fl (9.6-12.3); PLATELET COUNT AUTOMATED 146 10*3/uL (130-400); RED CELL DISTRI WIDTH 12.3 % (0-14.5); WHITE BLOOD COUNT 6.8 10*3/uL (4.8-10.8)
[2016-10-28 06:32] LABS: ALBUMIN 2.9 gm/dl (3.1-4.5); BILIRUBIN, TOTAL 0.5 mg/dl (0.2-1.0); POTASSIUM 3.9 mmol/L (3.5-5.1)
[2016-10-28 07:00] LABS: LYMPHOCYTE # 0.5 10*3/uL (1.3-4.4); MONOCYTE # 0.2 10*3/uL (0.1-1.0); NEUTROPHIL # 6.1 10*3/uL (2.3-7.9); NEUTROPHILS 89 % (47-73); PLATELET SUFFICIENCY NORMAL (NORMAL); TOTAL CELLS COUNTED 100 #CELLS
[2016-10-28 08:00] VITALS: BP 130/56
[2016-10-28 12:00] VITALS: BP 110/56
[2016-10-28] MEDS ORDERED: PREDNISONE10 MG PO (15:44)
[2016-10-28] MEDS ORDERED: ACETAZOLAMIDE250 MG PO (15:44)
[2016-10-28 16:00] VITALS: BP 122/76
== END 2016-10-28 18:35 | DRG 189 ==
LOC: ED 09:55 → ICCU 11:31 → EDHOLD 11:31 → 5E 11:31 → ICCU 11:53 → 5E 10-26 14:08
PROVIDERS: Internal Medicine; Internal Medicine Critical Care Medicine; Nurse Practitioner Family; Student in an Organized Health Care Education/Training Program
PROC: 5A09457 Assistance with Respiratory Ventilation, 24-96 Consecutive Hours, Continuous Positive Airway Pressure (ICD-10-PCS; principal; 2016-10-24)
DX: J96.21 Acute and chronic respiratory failure with hypoxia (principal); E87.4 Mixed disorder of acid-base balance; N17.9 Acute kidney failure, unspecified; E44.0 Moderate protein-calorie malnutrition; I50.32 Chronic diastolic (congestive) heart failure; J44.1 Chronic obstructive pulmonary disease with (acute) exacerbation; I48.2 Chronic atrial fibrillation; I13.0 Hypertensive heart and chronic kidney disease with heart failure and stage 1 through stage 4 chronic kidney disease, or unspecified chronic kidney disease; E11.22 Type 2 diabetes mellitus with diabetic chronic kidney disease; Z99.81 Dependence on supplemental oxygen; N18.3 Chronic kidney disease, stage 3 (moderate); J96.22 Acute and chronic respiratory failure with hypercapnia; F41.1 Generalized anxiety disorder; G47.33 Obstructive sleep apnea (adult) (pediatric); D72.810 Lymphocytopenia; K21.9 Gastro-esophageal reflux disease without esophagitis; Z87.891 Personal history of nicotine dependence; Z68.28 Body mass index [BMI] 28.0-28.9, adult; Z98.42 Cataract extraction status, left eye; Z98.41 Cataract extraction status, right eye; Z90.49 Acquired absence of other specified parts of digestive tract; Z90.710 Acquired absence of both cervix and uterus; Z83.2 Family history of diseases of the blood and blood-forming organs and certain disorders involving the immune mechanism; Z88.5 Allergy status to narcotic agent; Z88.8 Allergy status to other drugs, medicaments and biological substances; Z91.041 Radiographic dye allergy status; Z79.4 Long term (current) use of insulin; Z79.899 Other long term (current) drug therapy; Z79.01 Long term (current) use of anticoagulants

== ENCOUNTER 2016-10-30 02:10 | Emergency (ER) | payer OTHER ==
[~2016-10-30] VITALS: Wt 73.0 kg
[~2016-10-30 02:10] MED LIST changes: +ACETAZOLAMIDE250 MG PO; +DILTIAZEM30 MG PO; +GLUCOTROL10 MG PO; +LOPRESSOR50 M1 PO; +OMEPRAZOLE20 M2 PO; +Oscal,Oyster S500 MG PO
[2016-10-30] MEDS ORDERED: GOLD BOND MEDI113 GM T (02:19)
[2016-10-30 02:34] LABS: EOS % 0.5 % (1.0-4.0); HEMATOCRIT 33.9 % (37.0-47.0); HEMOGLOBIN 10.6 g/dl (12.0-16.0); LYMPH # 1.1 10*3/uL (1.3-4.4); LYMPH % 18.3 % (27.0-41.0); MEAN CELL VOLUME 91.9 fl (81.0-99.0); MEAN CORPUSCULAR HGB 28.7 pg (27.0-31.0); MEAN CORPUSCULAR HGB CONC 31.3 g/dl (33.0-37.0); MEAN PLATELET VOLUME 9.6 fl (9.6-12.3); MONO # 0.4 10*3/uL (0.1-1.0); MONO % 7.2 % (3.0-9.0); NEUT # 4.3 10*3/uL (2.3-7.9); NEUT % 73.7 % (47.0-73.0); PLATELET COUNT AUTOMATED 147 10*3/uL (130-400); RED BLOOD COUNT 3.69 10*6/uL (4.10-5.10); RED CELL DISTRI WIDTH 12.5 % (0-14.5); WHITE BLOOD COUNT 5.9 10*3/uL (4.8-10.8)
[2016-10-30 02:51] LABS: BILIRUBIN, TOTAL 0.3 mg/dl (0.2-1.0); POTASSIUM 3.6 mmol/L (3.5-5.1); TOTAL PROTEIN 5.7 gm/dL (6.4-8.2); TROPONIN I 0.017 ng/ml (<0.045)
[2016-10-30 02:59] VITALS: BP 157/62
== END 2016-10-30 03:42 ==
LOC: ED 02:10
PROVIDERS: Emergency Medicine
DX: R06.00 Dyspnea, unspecified (principal); F41.9 Anxiety disorder, unspecified; K21.9 Gastro-esophageal reflux disease without esophagitis; I10 Essential (primary) hypertension; E11.65 Type 2 diabetes mellitus with hyperglycemia; I99.8 Other disorder of circulatory system; I48.2 Chronic atrial fibrillation; J44.9 Chronic obstructive pulmonary disease, unspecified; J96.10 Chronic respiratory failure, unspecified whether with hypoxia or hypercapnia; Z79.899 Other long term (current) drug therapy; Z91.041 Radiographic dye allergy status; Z88.6 Allergy status to analgesic agent

== ENCOUNTER 2016-11-09 10:03 | Inpatient (IN) | payer OTHER ==
[2016-11-09] VITALS (7 sets, daily range): BP systolic 98–123; BP diastolic 25–50
[~2016-11-09] VITALS: Ht 167.6 cm; Wt 83.5 kg
--- NOTE | ~2016-11-09 | CON ---
[place], [place] REPORT OF CONSULTATION NAME: IRINA CALVO UNIT #: [id number] ROOM: [place] [address] DOCTOR: TREMAINE ORTEGA MD,ELSA BIRTHDATE: [birth year] DOS: 11/10/2016 PULMONARY CONSULTATION AND EVALUATION AND MANAGEMENT REASON FOR CONSULTATION: Change in mental status with acute respiratory failure and pneumonia. HISTORY OF PRESENT ILLNESS: An 86-year-old white female known to me with past history of advanced centrilobular emphysema for the patient with obstructive sleep apnea disorder diagnosed with chronic hypoxic and hypercapnic respiratory failure, was residing in the nursing facility, [facility]. The patient was doing well for this patient until yesterday morning when the patient was noted with symptoms of increased lethargy with decreased responsiveness and symptoms of shortness of breath. She was sent to the hospital emergency room, the patient was assessed in the emergency room in the morning by the ER physician and noted with acute pneumonia for this patient with severe acute hypercapnic hypoxic respiratory failure on chronic hypercapnic hypoxic respiratory failure. She has been currently admitted to the intensive care unit for further medical management. The BiPAP for the patient was continued yesterday with the changes in the setting for the patient has been made for this patient based on the repeat arterial blood gases. This morning, the patient was seen, she has been using the BiPAP. The patient was noted much more awake, able to understand the questions. She has been noted with some symptoms of coughing for this patient without any sputum expectoration. There were no symptoms of chest pain. There were no symptoms of hemoptysis described. PAST MEDICAL HISTORY, SOCIAL HISTORY, SURGICAL HISTORY AND FAMILY HISTORY: Of the patient has been reviewed for this patient during today's assessment for this patient from consultation of 10/25/2016, and remains completely unchanged for the patient since that hospitalization. Please refer to that part of the consultation of the patient that was completed of this patient on 10/25/2016. The note has been present in the [facility] for this patient for review whenever is needed. CURRENT ADMINISTERED MEDICATIONS: Noted use of metoprolol tartrate for this patient, Cymbalta, gabapentin, Cardizem 30 mg q. 6 hours, Eliquis 5 mg b.i.d., omeprazole, glipizide, tramadol, Lovenox, Levaquin, vancomycin and IV Zosyn. DRUG ALLERGY HISTORY: The patient was noted as allergy: 1. IVP DYE. 2. CODEINE. 3. MEPERIDINE. REVIEW OF SYSTEMS: Very limited because of the current use of the BiPAP for the medical management of severe acute hypercapnic and hypoxic respiratory failure on chronic hypercapnic and hypoxic respiratory failure. CONSTITUTIONAL: The patient was noted with symptoms of fatigue and tiredness. Denies symptoms of fever or chills. EYES: Denies any burning, redness, or tenderness. EAR, NOSE, THROAT: Denies sore throat, hoarseness, otalgia, postnasal drainage. [place], [place] REPORT OF CONSULTATION NAME: IRINA CLAVO UNIT #: [id number] ROOM: [place] [address] DOCTOR: TREMAINE ORTEGA MD,[facility] BIRTHDATE: [birth year] CARDIOVASCULAR: Denies anginal pain noted with edema of the lower extremities. GASTROINTESTINAL: Denies dysphagia, nausea, vomiting, diarrhea, abdominal pain, hematemesis, melena, hematochezia. SKIN: The patient was noted with bruising of the skin for the patient, which has been noted on admission secondary to use of her home medications. GENITOURINARY: Denies dysuria, suprapubic pain, hematuria. MUSCULOSKELETAL: Denies acute joint pain, redness, or tenderness. CENTRAL NERVOUS SYSTEM: Denies dizziness, headache, diplopia or syncopal episodes. Remaining systems were reviewed with the patient, they were noted all negative. PHYSICAL EXAMINATION: GENERAL: This is an 86-year-old female who has been currently noted to be awake, currently uses the BiPAP without any distress. VITAL SIGNS: Height of 5 feet 6 inches, weight of 184 pounds, BMI 29.7 with the vital signs recorded as temperature 99 degree Fahrenheit to normal temperature, respiratory rate of the patient ranged between 24-16, heart rate of 65-72, blood pressure 130/56 of the patient to 105/34. Heart rate of the patient noted later on elevated as 130 with atrial fibrillation with rapid ventricular response. HEENT: Edentulous status. NECK: Supple. Head was atraumatic. Eyes nonicterus. Oral mucosa dry. CARDIOVASCULAR: S1, S2 is audible. LUNGS: Noted with generalized reduction of breath sounds, scattered crackles of the lungs on the left side with scattered expiratory wheezing. ABDOMEN: Soft, nontender. Bowel sounds present. EXTREMITIES: Shows mild edema of the lower extremities with above the skin for the patient shows area of bruising of the upper and the lower extremities, most likely secondary to use of medications, anticoagulants. CENTRAL NERVOUS SYSTEM: Cranial nerves apparently appeared to be intact with limited examination, but there was definitely no gross focal neurologic deficit. MUSCULOSKELETAL: No acute deformities. LABORATORY DATA: The patient's CBC on 11/09/2016, for the patient, WBC count was elevated at 18.9, hemoglobin 11.3, hematocrit 38.5, platelet count 260,000. PT/PTT was noted as normal yesterday as well. CMP of the patient yesterday on admission, BUN 28, creatinine 1.39, glucose of 156, carbon dioxide 34. Lactic acid done yesterday was noted at 0.6. Arterial blood gas of the patient, pH of 7.07, pCO2 114, pO2 was noted as 150 for this patient initially on nonrebreather mask. PH of 7.08, pCO2 of 103, pO2 of 37, it is a venous blood gas. Repeat arterial blood gas for the patient on 50% oxygen, pH of 7.11, pCO2 90, pO2 of 71.8. Another arterial blood gas was done for the patient after adjustment of the BiPAP, pH of 7.18, pCO2 of 76, pCO2 of 72.7 for this patient with the use of BiPAP settings of 18/10. CK-MB, troponin were noted as normal. ABG this morning, pH of 7.20, pCO2 of 72.4, pO2 of 116 on 50% oxygen. CMP this morning, BUN 33, creatinine 1.22, glucose 155, sodium 146, remaining electrolytes grossly normal. PT/PTT this morning was normal. CBC this morning, hemoglobin 9.9, hematocrit 33.5, WBC count normal, platelet count was normal with 95% segmented neutrophils. Chest x-ray, the patient was noted with evidence of acute infiltration noted in the left lung. [place], [place] REPORT OF CONSULTATION NAME: IRINA CALVO UNIT #: [id number] ROOM: [place] [address] DOCTOR: ZORAN MORAES MDM BIRTHDATE: [birth year] IMPRESSION: 1. Acute on chronic severe hypercapnic and hypoxic respiratory failure result of acute pneumonia, consideration of gram-positive and gram-negative organisms may be related to the aspiration considered. 2. Acute exacerbation of COPD, which has been noted earlier with scattered wheezing in the lungs bilaterally. 3. History of known obstructive sleep apnea disorder, which has been titrated with the BiPAP, pending the BiPAP to be started in the home settings because of current hospitalization and previous treatment in the long term facility. 4. Chronic metabolic alkalosis of the patient secondary to chronic hypercarbia noted well controlled. 5. Atrial fibrillation, currently noted with acute rapid ventricular response, which has been managed with medications including beta blockers and other medication adjustments as well. 6. Mild edema of the upper and the lower extremities of the patient as well. PLAN OF TREATMENT: Continuation of bronchodilators, oxygen supplementation and current antibiotic. Monitor culture results of the sputum if the patient expectorate that. Monitor chest x-ray of the patient with repeat chest x-ray in the morning. Continue the BiPAP most of the time except possibly use of oxygen only for the meals. Further treatment plan of management for the patient to be changed based on progression of the illness. Continue DVT prophylaxis in the form of Eliquis as well. Maximize the cardiac management as well. Supportive care. Usual medical management, other therapy, plan of care. Thanks for allowing me to participate in the care of this patient. ELSA PENALOZA MD CM:CONSTR:REPORT OF CONSULTATION 1241 11/12/16 1151 interface
--- NOTE | ~2016-11-09 | PR ---
[place], [place] PROGRESS NOTE NAME: IRINA CALVO UNIT #: [id number] ROOM: [place] [address] DOCTOR: PRADEEP DAVEY BIRTHDATE: [birth year] DOS: 11/10/2016 SUBJECTIVE: The patient is an 86-year-old female who is being followed for healthcare-associated pneumonia of the left lung. She remains on Zosyn, vancomycin, and Levaquin. Her sputum specimen was rejected, although it had been induced by Respiratory. Her blood cultures are sterile. Urine culture with greater than 100,000 colonies of gram-negative bacilli. She is doing much better today. She remains on BiPAP currently, but she is much more alert, responsive, up in the chair. Denies nausea, vomiting, or diarrhea. She is confused. She has been afebrile. No rash or itch. No pain. LABORATORY DATA: Showed WBC is 9.6, platelets 219. BUN 33, creatinine 1.22. LFTs within normal limits. Urinary antigens are pending. PHYSICAL EXAMINATION: VITAL SIGNS: Temperature 97.0, pulse 115, respirations 21, BP 98/48. GENERAL: An 86-year-old female in no acute distress. HEAD, EYES, EARS, NOSE, AND THROAT: Normocephalic. No thrush. LUNGS: With rales on the left. Respirations even and unlabored on the BiPAP. HEART: Regular rhythm. No murmur appreciated. ABDOMEN: Soft, nontender. EXTREMITIES: +1 edema of all 4 extremities. SKIN: Warm, dry, free of rashes. ASSESSMENT: Healthcare-associated pneumonia, left lung. PLAN: She is to continue the empiric antibiotics with vancomycin, Zosyn, and Levaquin. Pending sputum culture and urinary antigens. I did discuss with nursing to reattempt sputum culture. Case discussed with Dr. Adrianna Bermudez. OCTOBER TAMICA FERNÁNDEZ [place], [place] PROGRESS NOTE NAME: IRINA CALVO UNIT #: [id number] ROOM: [place] [address] DOCTOR: PRADEEP DAVEY,OCTOBER BIRTHDATE: [birth year] ADRIANNA BERMUDEZ MD CM:JESSICA [id number] OCTOBER PRADEEP DAVEY 11/11/16 1047 interface
--- NOTE | ~2016-11-09 | PR ---
[place], [place] PROGRESS NOTE NAME: IRINA CALVO UNIT #: [id number] ROOM: [place] [address] DOCTOR: ELSA MORAES MD BIRTHDATE: [birth year] DOS: 11/12/2016 PULMONARY PROGRESS SUBJECTIVE: The patient has been noted with intermittent wakefulness for the patient and drowsiness at the time. She remains comfortable otherwise. She has been continued on the BiPAP use at this time. She has been noted with sinus pauses for the patient with intermittent atrial fibrillation, rapid ventricular response and bradycardia at times as well. OBJECTIVE: VITAL SIGNS: For the patient, which have been recorded showed the blood pressure of the patient recorded as 133/46-141/54, heart rate ranging between 60-143, respiratory rate was 16-22. The temperature was normal. HEENT: Examination shows no new changes at the present time. CARDIOVASCULAR SYSTEM: S1, S2 audible. LUNGS: Generally reduced breath sounds bilaterally without any wheezing or crackles. ABDOMEN: Soft, nontender. LABORATORY DATA: Streptococcal antigen and the legionella antigen in the urine report noted as negative. IMPRESSION: 1. Acute pneumonia of the patient, multifocal patient possibly to aspiration, currently treated for gram-positive, gram-negative infection. 2. Changes in mental status secondary to multiple issues including hypercarbia infection and others. 3. Acute on chronic hypercapnic and hypoxic respiratory failure. 4. Advanced chronic obstructive pulmonary disease for this patient as well. PLAN OF TREATMENT: Continue the BiPAP for this patient intermittently with other comfort measures. Continue antibiotics, bronchodilators. The patient could be transferred from the intensive care unit to a regular telemetry floor since there will be no intervention necessary for the patient during the stay in the Intensive Care Unit based on her code status. [place], [place] PROGRESS NOTE NAME: IRINA CALVO UNIT #: [id number] ROOM: [place] [address] DOCTOR: ELSA MORAES MD BIRTHDATE: [birth year] ELSA PENALOZA MD CM:PNTRANS [id number] ELSA ORTEGA MD 11/13/16 0117 interface
--- NOTE | ~2016-11-09 | PR ---
[place], [place] PROGRESS NOTE NAME: [id number] UNIT #: [id number] ROOM: [place] [address] DOCTOR: TREMAINE ORTEGA MD,ELSA BIRTHDATE: [birth year] DOS: 11/11/2016 PULMONARY FOLLOWUP SUBJECTIVE: The patient was seen and examined on 12/08/2016. She has been noted with ____ changes in mental status with intermittent improvement in mental status. This morning, the patient has been using the BiPAP for this patient. The code status has been noted DNR-CC arrest, use of the BiPAP with no intubation, no CPR. The patient has determined finally code status by the family members. OBJECTIVE: VITAL SIGNS: For the patient shows a normal temperature, respiratory rate 20-24, heart rate 70-135 with atrial fibrillation intermittently with rapid ventricular response, blood pressure 109/62-101/35. Intake 1730 mL, output 350 mL. The pulse oxygen saturation with the BiPAP was 90%-92% saturation. HEENT: Examination shows no new change. NECK: Supple. CARDIOVASCULAR: S1, S2 is audible. LUNGS: Noted with moderate decreased breath sounds in the lungs with scattered crackles in the lungs bilaterally, more on the left than the right side. ABDOMEN: Soft, nontender. LABORATORY DATA: BMP of the patient this morning, BUN 24, creatinine 1.14. Glucose 127, carbon dioxide 33. Vancomycin trough level 10.2. Chest x-ray, PA and lateral view this morning shows persistent infiltration, consolidation in the left lung for this patient. Small left pleural fluid was also seen. Arterial blood gas that was done this morning for this patient shows pH of 7.25, pCO2 of 72, pO2 65. IMPRESSION: 1. The patient with persistent acute hypercapnic and hypoxic respiratory failure, chronic hypoxic and hypercapnic respiratory failure, change in mental status. 2. Acute large pneumonia involving the left lung with small pleural fluid as a result. 3. Intermittent changes in mental status was also seen. PLAN OF MANAGEMENT: The patient's BiPAP setting has been changed, BiPAP for . Oxygen supplementation titrated to maintain saturation 92% or greater. The oxygen supplementation increased from 50% - 60% of oxygen. Other supportive therapy, plan of management was continued as previously. Usual treatment. Overall, prognosis of the patient remains guarded. [place], [place] PROGRESS NOTE NAME: IRINA CALVO UNIT #: [id number] ROOM: [place] [address] DOCTOR: TREMAINE ORTEGA MD,ELSA BIRTHDATE: [birth year] ELSA PENALOZA MD CM:PNTRANS [phone] ELSA ORTEGA MD 11/12/16 0304 interface
--- NOTE | ~2016-11-09 | CON ---
[place], [place] REPORT OF CONSULTATION NAME: IRINA CALVO UNIT #: [id number] ROOM: [place] [address] DOCTOR: LARA WILLIAMSON,ADRIANNA Plasencia BIRTHDATE: [birth year] DOS: 11/09/2016 ADDENDUM I agree with the above plans after reviewing the chart, its labs and radiographs and agree with plan as outlined above. Follow up the patient clinically and make appropriate changes accordingly. ADRIANNA BERMUDEZ MD CM:CONSTR:REPORT OF CONSULTATION 1901 11/10/16 1105 interface
[~2016-11-09 10:03] MED LIST changes: +GOLD BOND MEDI113 GM T
[2016-11-09 10:33] LABS: BASO % 0.1 % (0.0-1.0); EOS % 0.2 % (1.0-4.0); HEMATOCRIT 38.5 % (37.0-47.0); HEMOGLOBIN 11.3 g/dl (12.0-16.0); IG # 0.3 10*3/uL (0.0-0.1); LYMPH # 0.8 10*3/uL (1.3-4.4); LYMPH % 4.2 % (27.0-41.0); MEAN CELL VOLUME 96.5 fl (81.0-99.0); MEAN CORPUSCULAR HGB 28.3 pg (27.0-31.0); MEAN CORPUSCULAR HGB CONC 29.4 g/dl (33.0-37.0); MEAN PLATELET VOLUME 10.2 fl (9.6-12.3); MONO # 0.9 10*3/uL (0.1-1.0); MONO % 4.9 % (3.0-9.0); NEUT # 16.3 10*3/uL (2.3-7.9); NEUT % 89.2 % (47.0-73.0); NUCLEATED RED BLOOD CELL 0.1 % (0.0-0.0); PLATELET COUNT AUTOMATED 260 10*3/uL (130-400); RED BLOOD COUNT 3.99 10*6/uL (4.10-5.10); WHITE BLOOD COUNT 18.3 10*3/uL (4.8-10.8)
[2016-11-09 10:46] LABS: PROTHROMBIN TIME 10.4 SECONDS (8.9-12.2)
[2016-11-09 10:49] LABS: ALBUMIN 2.8 gm/dl (3.1-4.5); BILIRUBIN, TOTAL 0.5 mg/dl (0.2-1.0); C-REACTIVE PROTEIN 3.28 MG/DL (0-0.3); CKMB 2.6 ng/ml (0.5-3.6); MAGNESIUM 1.9 mg/dL (1.5-2.1); POTASSIUM 3.8 mmol/L (3.5-5.1); TROPONIN I 0.022 ng/ml (<0.045)
[2016-11-09 10:49] LABS: BILIRUBIN NEGATIVE (NEGATIVE); BLOOD 3+ (NEGATIVE); CLARITY CLOUDY (CLEAR); COLOR YELLOW (YELLOW); GLUCOSE NEGATIVE (NEGATIVE); KETONE NEGATIVE (NEGATIVE); NITRITE POSITIVE (NEGATIVE); PH 5.5 (5.0-9.0); PROTEIN 1+ (NEGATIVE)
[2016-11-09 10:59] LABS: LEUKO ESTERASE 1+ (NEGATIVE)
[2016-11-09 11:00] LABS: BACTERIA 4+; URINE REFLEX COMMENT YES (NO)
[2016-11-09 11:12] LABS: RBC 41-50 rbc/hpf (0-2); WBC 21-30 wbc/hpf (0-5)
[2016-11-09 11:13] LABS: ABG BASE EXCESS -1.5 mmol/L (-2.0-2.0); ABG CO2 CONTENT 34.8 mmol/L (23-27); ABG HCO3 31.4 mmol/l (22-26); ABG TEMPERATURE 99.1 F (98.0-99.0)
[2016-11-09 11:19] LABS: ARTERIAL BLOOD GAS PH 7.072 (7.35-7.45)
[2016-11-09 13:22] LABS: ABG BASE EXCESS -2.5 mmol/L (-2.0-2.0); ABG HCO3 29.7 mmol/l (22-26); ABG TEMPERATURE 97.6 F (98.0-99.0)
[2016-11-09 13:28] LABS: ARTERIAL BLOOD GAS PH 7.083 (7.35-7.45)
[2016-11-09 13:29] LABS: ARTERIAL BLOOD GAS PO2 37.6 mmHg (80-90)
[2016-11-09 13:41] LABS: ABG BASE EXCESS -2.3 mmol/L (-2.0-2.0); ABG HCO3 29.1 mmol/l (22-26); ABG TEMPERATURE 97.6 F (98.0-99.0); ARTERIAL BLOOD GAS PO2 71.8 mmHg (80-90)
[2016-11-09 13:45] LABS: ARTERIAL BLOOD GAS PH 7.116 (7.35-7.45)
[2016-11-09 19:08] LABS: ABG BASE EXCESS -1.7 mmol/L (-2.0-2.0); ABG CO2 CONTENT 30.3 mmol/L (23-27); ABG HCO3 27.8 mmol/l (22-26); ABG TEMPERATURE 97.2 F (98.0-99.0); ARTERIAL BLOOD GAS PO2 72.7 mmHg (80-90)
[2016-11-09 19:12] LABS: ARTERIAL BLOOD GAS PH 7.183 (7.35-7.45)
[2016-11-09 19:20] LABS: TROPONIN I 0.017 ng/ml (<0.045)
[2016-11-10] VITALS: BP 113/45
[2016-11-10 00:28] LABS: TROPONIN I 0.019 ng/ml (<0.045)
[2016-11-10 04:00] VITALS: BP 123/38
[2016-11-10 05:27] LABS: ABG BASE EXCESS -0.4 mmol/L (-2.0-2.0); ABG CO2 CONTENT 32.2 mmol/L (23-27); ABG HCO3 29.5 mmol/l (22-26); ABG TEMPERATURE 97.2 F (98.0-99.0)
[2016-11-10 05:32] LABS: ARTERIAL BLOOD GAS PH 7.174 (7.35-7.45)
[2016-11-10 05:33] LABS: ARTERIAL BLOOD GAS PO2 26.9 mmHg (80-90)
[2016-11-10 05:53] LABS: ABG CO2 CONTENT 30.3 mmol/L (23-27); ABG TEMPERATURE 97.2 F (98.0-99.0); ARTERIAL BLOOD GAS PH 7.207 (7.35-7.45)
[2016-11-10 05:56] LABS: ALBUMIN 2.5 gm/dl (3.1-4.5); BILIRUBIN, TOTAL 0.4 mg/dl (0.2-1.0); MAGNESIUM 1.9 mg/dL (1.5-2.1); PHOSPHOROUS 3.6 mg/dL (2.5-4.9); TOTAL PROTEIN 5.4 gm/dL (6.4-8.2)
[2016-11-10 06:01] LABS: THYROID STIM HORMONE (HS) 0.378 uIU/ml (0.358-4.75)
[2016-11-10 06:12] LABS: HEMATOCRIT 33.5 % (37.0-47.0); HEMOGLOBIN 9.9 g/dl (12.0-16.0); MEAN CELL VOLUME 95.4 fl (81.0-99.0); MEAN CORPUSCULAR HGB 28.2 pg (27.0-31.0); MEAN CORPUSCULAR HGB CONC 29.6 g/dl (33.0-37.0); MEAN PLATELET VOLUME 10.4 fl (9.6-12.3); PLATELET COUNT AUTOMATED 219 10*3/uL (130-400); RED BLOOD COUNT 3.51 10*6/uL (4.10-5.10); WHITE BLOOD COUNT 9.6 10*3/uL (4.8-10.8)
[2016-11-10 06:17] LABS: INTERNATIONAL NORM RATIO 1.1 (2.0-3.5); PROTHROMBIN TIME 11.3 SECONDS (9.0-12.4)
[2016-11-10 06:26] LABS: HEMOGLOBIN A1c 5.2 % (4.8-5.6)
[2016-11-10 06:46] LABS: LYMPHOCYTE # 0.3 10*3/uL (1.3-4.4); METAMYELOCYTES 1 % (0-0); MONOCYTE # 0.1 10*3/uL (0.1-1.0); NEUTROPHIL # 9.1 10*3/uL (2.3-7.9); NEUTROPHILS 95 % (47-73); PLATELET SUFFICIENCY NORMAL (NORMAL); TOTAL CELLS COUNTED 100 #CELLS
[2016-11-10 06:55] LABS: VITAMIN D, 25-HYDROXY 28.4 ng/mL (30-100)
[2016-11-10 06:57] LABS: FOLIC ACID > 24.00 ng/mL (>5.38)
[2016-11-10 08:00] VITALS: BP 105/34
[2016-11-10 12:00] VITALS: BP 98/48
[2016-11-10 16:00] VITALS: BP 91/40
[2016-11-10 20:00] VITALS: BP 99/48
[2016-11-11] VITALS: BP 113/41
[2016-11-11 04:00] VITALS: BP 109/43
[2016-11-11 06:02] LABS: POTASSIUM 3.3 mmol/L (3.5-5.1)
[2016-11-11 06:09] LABS: EOS % 0.3 % (1.0-4.0); HEMATOCRIT 31.7 % (37.0-47.0); HEMOGLOBIN 9.4 g/dl (12.0-16.0); IG # 0.1 10*3/uL (0.0-0.1); LYMPH # 0.7 10*3/uL (1.3-4.4); LYMPH % 6.7 % (27.0-41.0); MEAN CELL VOLUME 94.9 fl (81.0-99.0); MEAN CORPUSCULAR HGB 28.1 pg (27.0-31.0); MEAN CORPUSCULAR HGB CONC 29.7 g/dl (33.0-37.0); MEAN PLATELET VOLUME 10.5 fl (9.6-12.3); MONO # 0.6 10*3/uL (0.1-1.0); MONO % 5.8 % (3.0-9.0); NEUT # 8.4 10*3/uL (2.3-7.9); NEUT % 86.4 % (47.0-73.0); PLATELET COUNT AUTOMATED 196 10*3/uL (130-400); RED BLOOD COUNT 3.34 10*6/uL (4.10-5.10); RED CELL DISTRI WIDTH 13.2 % (0-14.5); WHITE BLOOD COUNT 9.8 10*3/uL (4.8-10.8)
[2016-11-11 08:00] VITALS: BP 101/35
[2016-11-11 08:53] LABS: ABG BASE EXCESS 2.7 mmol/L (-2.0-2.0); ABG CO2 CONTENT 33.4 mmol/L (23-27); ABG HCO3 31.1 mmol/l (22-26); ABG TEMPERATURE 97.6 F (98.0-99.0); ARTERIAL BLOOD GAS PH 7.25 (7.35-7.45); ARTERIAL BLOOD GAS PO2 65.1 mmHg (80-90)
[2016-11-11 11:49] LABS: POTASSIUM 3.7 mmol/L (3.5-5.1)
[2016-11-11 12:00] VITALS: BP 109/62
[2016-11-11 16:00] VITALS: BP 109/62
[2016-11-11 16:12] LABS: ORGANISM ID Not indicated. (.); SPECIMEN SOURCE Urine (.); STREPTOCOCCUS PNEUMONIAE AG Negative (Negative)
[2016-11-11 20:00] VITALS: BP 114/51
[2016-11-12] VITALS: BP 124/47
[2016-11-12 04:00] VITALS: BP 141/54
[2016-11-12 08:00] VITALS: BP 133/46
[2016-11-12 12:00] VITALS: BP 159/65
== END 2016-11-12 16:52 | disposition hospice, home (50) | DRG 871 ==
LOC: ED 10:03 → ICCU 11:06 → EDHOLD 11:06 → ICCU 11:17
PROVIDERS: Emergency Medicine; Internal Medicine; Internal Medicine Critical Care Medicine
PROC: 5A09457 Assistance with Respiratory Ventilation, 24-96 Consecutive Hours, Continuous Positive Airway Pressure (ICD-10-PCS; principal; 2016-11-10)
DX: A41.9 Sepsis, unspecified organism (principal); J96.21 Acute and chronic respiratory failure with hypoxia; N17.0 Acute kidney failure with tubular necrosis; J69.0 Pneumonitis due to inhalation of food and vomit; G93.41 Metabolic encephalopathy; E87.0 Hyperosmolality and hypernatremia; E43 Unspecified severe protein-calorie malnutrition; J96.22 Acute and chronic respiratory failure with hypercapnia; I13.0 Hypertensive heart and chronic kidney disease with heart failure and stage 1 through stage 4 chronic kidney disease, or unspecified chronic kidney disease; N30.01 Acute cystitis with hematuria; I50.9 Heart failure, unspecified; E11.22 Type 2 diabetes mellitus with diabetic chronic kidney disease; R65.20 Severe sepsis without septic shock; E55.9 Vitamin D deficiency, unspecified; F41.9 Anxiety disorder, unspecified; K21.9 Gastro-esophageal reflux disease without esophagitis; I48.2 Chronic atrial fibrillation; D64.9 Anemia, unspecified; E11.65 Type 2 diabetes mellitus with hyperglycemia; Z99.81 Dependence on supplemental oxygen; Z90.49 Acquired absence of other specified parts of digestive tract; Z90.710 Acquired absence of both cervix and uterus; Z87.891 Personal history of nicotine dependence; Z79.4 Long term (current) use of insulin; Z79.899 Other long term (current) drug therapy; N18.3 Chronic kidney disease, stage 3 (moderate)

== ENCOUNTER 2016-11-12 16:59 | Inpatient (IN) | payer OTHER ==
[~2016-11-12] VITALS: Ht 170.2 cm; Wt 83.0 kg
== END 2016-11-13 02:04 | disposition expired | DRG 871 ==
LOC: ICCU 16:59 → 4E 17:36
PROC: 5A09357 Assistance with Respiratory Ventilation, Less than 24 Consecutive Hours, Continuous Positive Airway Pressure (ICD-10-PCS; principal; 2016-11-12)
DX: A41.9 Sepsis, unspecified organism (principal); J18.1 Lobar pneumonia, unspecified organism; J96.21 Acute and chronic respiratory failure with hypoxia; N17.0 Acute kidney failure with tubular necrosis; E43 Unspecified severe protein-calorie malnutrition; G93.41 Metabolic encephalopathy; I13.0 Hypertensive heart and chronic kidney disease with heart failure and stage 1 through stage 4 chronic kidney disease, or unspecified chronic kidney disease; E87.0 Hyperosmolality and hypernatremia; I50.32 Chronic diastolic (congestive) heart failure; S51.019A Laceration without foreign body of unspecified elbow, initial encounter; D64.9 Anemia, unspecified; N30.01 Acute cystitis with hematuria; E87.2 Acidosis; R65.20 Severe sepsis without septic shock; E11.65 Type 2 diabetes mellitus with hyperglycemia; Z66 Do not resuscitate; E55.9 Vitamin D deficiency, unspecified; J44.9 Chronic obstructive pulmonary disease, unspecified; X58.XXXA Exposure to other specified factors, initial encounter; F41.9 Anxiety disorder, unspecified; K21.9 Gastro-esophageal reflux disease without esophagitis; I48.2 Chronic atrial fibrillation; N18.3 Chronic kidney disease, stage 3 (moderate); Z68.29 Body mass index [BMI] 29.0-29.9, adult; Y93.89 Activity, other specified; Y92.89 Other specified places as the place of occurrence of the external cause; Y99.8 Other external cause status